=== PATIENT | female | born 1950 | race Caucasian/White ===

== ENCOUNTER → 2019-09-05 11:13 | Outpatient (BNVA) | payer MEDICARE, SELFPAY | PROVIDERS: Family Provider Nurse Practitioner Family; PCP Nurse Practitioner Family; Visit Provider Nurse Practitioner Family | DX: N39.0 Urinary tract infection, site not specified (principal) | CPT/HCPCS: 87086 ==

== ENCOUNTER → 2020-07-04 11:24 | Outpatient (BNVA) | payer MEDICARE, SELFPAY | PROVIDERS: Family Provider Nurse Practitioner Family; PCP Nurse Practitioner Family; Visit Provider Nurse Practitioner Family | DX: E11.9 Type 2 diabetes mellitus without complications (principal); E03.9 Hypothyroidism, unspecified; I10 Essential (primary) hypertension | CPT/HCPCS: 80053; 82043; 83036; 84443 ==

== ENCOUNTER → 2020-10-23 10:40 | Outpatient (BNVA) | payer MEDICARE, SELFPAY | PROVIDERS: Family Provider Nurse Practitioner Family; PCP Nurse Practitioner Family; Visit Provider Nurse Practitioner Family | DX: E11.9 Type 2 diabetes mellitus without complications (principal); E78.5 Hyperlipidemia, unspecified; E03.9 Hypothyroidism, unspecified | CPT/HCPCS: 80053; 80061; 83036; 84443 ==

== ENCOUNTER → 2020-12-11 13:28 | Outpatient (BNVA) | payer MEDICARE, SELFPAY | PROVIDERS: Family Provider Nurse Practitioner Family; PCP Nurse Practitioner Family; Visit Provider Nurse Practitioner Family | DX: E03.9 Hypothyroidism, unspecified (principal) | CPT/HCPCS: 84443 ==

== ENCOUNTER → 2021-04-30 15:07 | Outpatient (BNVA) | payer MEDICARE, SELFPAY | PROVIDERS: Family Provider Nurse Practitioner Family; PCP Nurse Practitioner Family; Visit Provider Nurse Practitioner Family | DX: E03.9 Hypothyroidism, unspecified (principal); I10 Essential (primary) hypertension | CPT/HCPCS: 80053; 84443 ==

== ENCOUNTER → 2021-11-19 10:48 | Outpatient (BNVA) | payer MEDICARE, SELFPAY | PROVIDERS: Family Provider Nurse Practitioner Family; PCP Nurse Practitioner Family; Visit Provider Nurse Practitioner Family | DX: R53.83 Other fatigue (principal); I10 Essential (primary) hypertension; E11.9 Type 2 diabetes mellitus without complications; E78.5 Hyperlipidemia, unspecified; R06.00 Dyspnea, unspecified; E03.9 Hypothyroidism, unspecified | CPT/HCPCS: 80053; 80061; 83036; 84443; 85025 ==

== ENCOUNTER → 2022-05-21 13:59 | Outpatient (BNVA) | payer MEDICARE, SELFPAY | PROVIDERS: Family Provider Nurse Practitioner Family; PCP Nurse Practitioner Family; Visit Provider Internal Medicine Cardiovascular Disease | DX: I48.11 Longstanding persistent atrial fibrillation (principal); Z79.01 Long term (current) use of anticoagulants; I10 Essential (primary) hypertension; Z86.73 Personal history of transient ischemic attack (TIA), and cerebral infarction without residual deficits | CPT/HCPCS: 93242; 99214 ==

== ENCOUNTER → 2022-06-16 13:30 | Outpatient (BNVA) | payer MEDICARE, SELFPAY | PROVIDERS: Family Provider Nurse Practitioner Family; PCP Nurse Practitioner Family; Visit Provider Nurse Practitioner Family | DX: E11.9 Type 2 diabetes mellitus without complications (principal); I10 Essential (primary) hypertension; E03.9 Hypothyroidism, unspecified | CPT/HCPCS: 80053; 83036; 84443 ==

== ENCOUNTER 2022-06-22 20:12 | Emergency (ER) | payer MEDICARE, SELFPAY ==
[2022-06-22 20:28] VITALS: BP 165/92; PULSE 108; RESP 26; TEMP 36.8; O2SAT 95; BMI 42.5
--- NOTE | 2022-06-22 20:30 | XRR_ITS ---
PROCEDURE INFORMATION: Exam: XR Chest Exam date and time: 06/22/2022 9:15 PM Age: 72 years old Clinical indication: Other: HTN; Additional info: High BP TECHNIQUE: Imaging protocol: Radiologic exam of the chest. Views: 1 view. COMPARISON: CR XR chest 1V [id number] 04/23/2019 4:53 PM FINDINGS: Lungs: There is no consolidation. There are calcified nodules in the right lower lung, stable since 04/23/2019. Pleural spaces: There is no pleural effusion or pneumothorax. Heart/Mediastinum: Unremarkable. No cardiomegaly. Bones/joints: Bones are unremarkable. XR/XR chest 1V portable [id number] IMPRESSION: No acute findings.
[2022-06-22 21:37] VITALS: BP 157/113; PULSE 108; RESP 20; O2SAT 96
[2022-06-22 21:50] LABS: Basophils % 0.3 %; Eosinophils # 0.2 10^3/uL (0.0-0.8); Eosinophils % 2.1 %; Hemoglobin 13.6 g/dL (11.5-15.3); Lymphocytes # 0.7 10^3/uL (0.8-4.8); Lymphocytes % 7.8 %; Mean Corpuscular HGB Conc 31.6 g/dL (30.0-36.0); Mean Corpuscular Hemoglobin 27.5 pg (28.0-34.0); Mean Platelet Volume 9.1 fL (7.4-10.4); Monocytes # 0.8 10^3/uL (0.2-0.9); Neutrophils # 7.75 10^3/uL (1.8-7.7); Neutrophils % 81.5 %; Nucleated Red Blood Cells % 0 %; Platelet Count 402 10^3/cmm (130-400); Red Blood Count 4.94 10^6/uL (4.1-5.3); Red Cell Distribution Width 15.6 % (12.1-15.1); White Blood Count 9.5 10^3/uL (4.0-10.0)
[2022-06-22 22:26] LABS: Troponin(5th) Baseline 28 ng/L (0-10)
[2022-06-22 22:32] VITALS: BP 183/105; PULSE 109; RESP 18; O2SAT 97
[2022-06-22 22:35] LABS: Alanine Aminotransferase 16 U/L (0-33); Albumin Level 3.5 g/dL (3.5-5.2); Alkaline Phosphatase 80 U/L (35-105); Anion Gap 17.9 (5-19); Aspartate Amino Transferase 13 U/L (0-32); Blood Urea Nitrogen 11 mg/dL (8-23); Calcium 9.2 mg/dL (8.5-10.5); Carbon Dioxide 24 mmol/L (22-29); Chloride 91 mmol/L (98-107); Globulin 3.5 g/dL (1.3-4.6); Glucose 202 mg/dL (65-115); NT Pro B Type Natriuretic Pept 741 pg/mL (0-125); Osmolality Calculated 271 mOsm/kg (285-295); Potassium 4.9 mmol/L (3.5-5.1); Sodium 128 mmol/L (136-145); Total Bilirubin 0.3 mg/dL (0.15-1.2)
--- NOTE | 2022-06-22 22:43 | ECG_ITS ---
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 Measurements Intervals [place] Rate: 98 P: [place]: QRS: -55 QRSD: 76 T: 0 QT: 177 QTc: 226 Interpretive Statements ATRIAL FLUTTER WITH ABERRANT CONDUCTION OR VENTRICULAR PREMATURE COMPLEXES LEFT AXIS DEVIATION [QRS AXIS < -30] LOW QRS VOLTAGE IN PRECORDIAL LEADS [QRS DEFLECTION < 1.0 mV IN CHEST LEADS] POSSIBLE RIGHT VENTRICULAR CONDUCTION DELAY [RSR (QR) IN V1/V2] ST DEPRESSION, CONSIDER SUBENDOCARDIAL INJURY [0.1+ mV ST DEPRESSION] Compared to ECG 04/28/2019 12:55:33 Ventricular premature complex(es) now present Aberrant conduction of supraventricular beat(s) now present Low QRS voltage now present ST (T wave) deviation now present Sinus rhythm no longer present Possible ischemia no longer present Electronically Signed On 06-23-2022 22:57:08 CDT by Emmy Morillo M.D. [id number]
[2022-06-22 22:48] LABS: Add Urine Microscopic? YES; Bilirubin Urine Neg (Negative); Blood Urine Neg (Negative); Glucose Urine UA Norm (Normal); Ketones Urine 1+ (Negative); Leukocyte Esterase Urine 1+ (Negative); Nitrate Urine Positive (Negative); Protein Urine Trace (Negative); Urine Appearance Hazy (CLEAR); Urine Color Yellow (Yellow); Urobilinogen Urine 1 mg/dL (Negative); pH Urine 5 (5-7)
[2022-06-22 22:51] LABS: Add Urine Culture? No; Bacteria Urine 2+ /hpf; Mucus Urine 1+ /hpf; RBC Urine 0-4 /hpf (0-2); WBC Urine 15-25 /hpf (0-5)
[2022-06-22 23:01] VITALS: BP 162/91; PULSE 104; RESP 18; O2SAT 96
--- NOTE | 2022-06-22 23:29 | ECG_ITS ---
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 Measurements Intervals [place] Rate: 92 P: [place]: QRS: -58 QRSD: 141 T: -57 QT: 412 QTc: 511 Interpretive Statements ATRIAL FLUTTER/TACHYCARDIA WITH ABERRANT CONDUCTION OR VENTRICULAR PREMATURE COMPLEXES RIGHT BUNDLE BRANCH BLOCK LEFT ANTERIOR FASCICULAR BLOCK MODERATE T-WAVE ABNORMALITY, CONSIDER ANTEROLATERAL ISCHEMIA MODERATE T-WAVE ABNORMALITY, CONSIDER INFERIOR ISCHEMIA Compared to ECG 06/22/2022 22:43:03 Right bundle-branch block now present Left anterior fascicular block now present T-wave abnormality now present Possible ischemia now present Left-axis deviation no longer present ST (T wave) deviation no longer present Electronically Signed On 06-23-2022 23:09:31 CDT by Emmy Morillo M.D. [id number]
[2022-06-22] MEDS: metoprolol tartrate 1 mg/1 mL SDV 5 mL 5 MG IVP (23:35)
[2022-06-22 23:39] VITALS: BP 160/89; PULSE 74; RESP 18; O2SAT 95
[2022-06-23] MEDS: cefTRIAXone 1,000 MG in sodium chloride 0.9% (plus) 50 ML 100 MG IV
[2022-06-23 00:10] LABS: Troponin 5 2HR 23.97 ng/L (0-10)
[2022-06-23 00:11] LABS: Troponin 5 2HR Delta -4.03 ABS# (0-10)
[2022-06-23 00:16] VITALS: BP 143/82; PULSE 72; RESP 18; O2SAT 96
[2022-06-23 00:49] VITALS: BP 136/87; PULSE 80; RESP 18; O2SAT 96
--- NOTE | 2022-06-24 10:19 | W.ED.GENADLT ---
HPI - General Adult General: Chief complaint: General Medical Stated complaint: high B/P Time Seen by Provider: 06/22/22 21:26 Source: patient and family Mode of arrival: wheelchair History of Present Illness: year old female brought in by her family due to concerns of rising heart rate and blood pressure. She has a history of atrial fibrillation/adrio flutter. And family has noticed her heart rate and blood pressure slowly rise over the past couple of weeks. The patient maintains she is not symptomatic from this. She is not a really short of breath, and is not having chest discomfort. No fever or diarrhea or other illness. Onset (ago): day(s) Radiation: non-radiation Severity: mild Quality: other Pain Consistency: other Relieving factors: other Exacerbating factors: other Associated symptoms: Reports weakness (generalized); Deny chest pain, confusion, cough, diaphoresis, decreased appetite, dyspnea, fevers/chills, headache(s), nausea, rash, seizures, syncope or vomiting Review of Systems Const: Denies: fever(s) or diaphoresis Eyes: Denies: change in vision Card: Denies: chest pain or syncope Resp: Denies: dyspnea GI: Denies: nausea or vomiting : Denies: difficulty voiding Skin/Breast: Denies: rash Neuro: Denies: headache(s) or confusion PFSH ED PFSH: Medical History Atrial fibrillation CVA (cerebral vascular accident) Diabetes type 2, controlled DVT (deep venous thrombosis) Dyslipidemia Hypertension Hypothyroidism Obesity Pulmonary embolism Surgical History History of tubal ligation Family History Mother Stroke Grandmother Stroke Other Hypertension Social History Smoking and tobacco status: never smoked Alcohol intake: never Lives independently: No Household members: spouse Marital status: Current occupational status: retired Current gender identity: Female Physical Exam Const: COMMON NORMALS: no acute distress GENERAL APPEARANCE: cooperative; not ill appearing and not frail appearing HENMT: COMMON NORMALS: normocephalic, atraumatic and Normal external nose present HEAD & SCALP: normocephalic and atraumatic FACE & SINUS: normal facial exam and face symmetric NOSE: Normal external nose present Eye: COMMON NORMALS: Equal, round and reactive pupils present and EOMs intact bilaterally PUPIL: Yes Equal, round and reactive pupils present Neck/C-Spine: GENERAL: Yes trachea midline Chest: CHEST: Yes Symmetrical chest wall rise Resp: COMMON NORMALS: normal respiratory effort, No retractions, No use of accessory muscles and clear to auscultation bilaterally AUSCULTATION: clear to auscultation bilaterally Cardio: COMMON NORMALS: regular rhythm RATE: tachycardic RHYTHM: regular rhythm GI: COMMON NORMALS: Normal to inspection, nondistended, normoactive bowel sounds present Extremity: COMMON NORMALS: no pedal edema Neuro: MARTIN COMA SCALE: document GCS findings Premont coma scale eye opening: Spontaneous Martin coma scale verbal response: Orientated Premont coma scale motor response: Obey commands Martin coma scale total score: 15 SENSORY EXAM: Yes extremities (intact) Psych: COMMON NORMALS: speech normal SPEECH: Yes normal speech Skin: COMMON NORMALS: no rashes or lesions noted GENERAL SKIN EXAM: no rashes or lesions noted Course Vital Signs: Vital signs: Vital Signs Temperature 98.3 F 06/22/22 20:28 Pulse Rate 80 06/23/22 00:49 Respiratory Rate 18 06/23/22 00:49 Blood Pressure 136/87 06/23/22 00:49 Pulse Oximetry 96 06/23/22 00:49 Oxygen Delivery Me thod 06/22/22 21:37 Oxygen Flow Rate 2 06/22/22 21:37 [facility] - General Adult Medical Decision Making The patient's heart rate and blood pressure are significantly improved after administration of intravenous metoprolol. Her notes that the master tax advisor has been titrating her dose of diltiazem, but she is also on carvedilol. We will increase her carvedilol dosage as the metoprolol seemed to really help both her blood pressure and heart rate here. Her laboratory is not remarkable, her chest X-ray is not remarkable, and the patient is asymptomatic. She does, however, have a urinary tract infection which will be treated as well. Family was counseled that this can drive up the heart rate as well. Lab Data : 06/22/22 21:37 06/22/22 21:37 Radiology Impressions Chest X-Ray 06/22/22 20:30 IMPRESSION: No acute findings. Laboratory Results WBC 9.5 10^3/uL (4.0-10.0) 06/22/22 21:37 RBC 4.94 10^6/uL (4.1-5.3) 06/22/22 21:37 Hgb 13.6 g/dL (11.5-15.3) 06/22/22 21:37 Hct 43.0 % (37.0-47.0) 06/22/22 21:37 MCV 87.0 fl (81-99) 06/22/22 21:37 MCH 27.5 pg (28.0-34.0) L 06/22/22 21:37 MCHC 31.6 g/dL (30.0-36.0) 06/22/22 21:37 RDW 15.6 % (12.1-15.1) H 06/22/22 21:37 Plt Count 402 10^3/cmm (130-400) H 06/22/22 21:37 MPV 9.1 fL (7.4-10.4) 06/22/22 21:37 Neut % (Auto) 81.5 % 06/22/22 21:37 Lymph % (Auto) 7.8 % 06/22/22 21:37 [place] % (Auto) 8.0 % 06/22/22 21:37 Eos % (Auto) 2.1 % 06/22/22 21:37 Baso % (Auto) 0.3 % 06/22/22 21:37 Neut # (Auto) 7.75 10^3/uL (1.8-7.7) H 06/22/22 21:37 Lymph # (Auto) 0.7 10^3/uL (0.8-4.8) L 06/22/22 21:37 [place] # (Auto) 0.8 10^3/uL (0.2-0.9) 06/22/22 21:37 Eos # (Auto) 0.2 10^3/uL (0.0-0.8) 06/22/22 21:37 Baso # (Auto) 0.0 10^3/uL (0.0-0.1) 06/22/22 21:37 Nucleated RBC % (auto) 0 % 06/22/22 21:37 Nucleated RBCs # 0.0 /100WBC 06/22/22 21:37 PT 24.80 SECONDS (12.1-14.9) H 06/22/22 21:37 INR 2.20 (0.8-1.2) H 06/22/22 21:37 Sodium 128 mmol/L (136-145) L 06/22/22 21:37 Potassium 4.9 mmol/L (3.5-5.1) 06/22/22 21:37 Chloride 91 mmol/L (98-107) L 06/22/22 21:37 Carbon Dioxide 24 mmol/L (22-29) 06/22/22 21:37 Anion Gap 17.9 (5-19) 06/22/22 21:37 BUN 11 mg/dL (8-23) 06/22/22 21:37 Creatinine 0.7 mg/dL (0.5-0.9) 06/22/22 21:37 GFR Calculation Not Reportable 06/22/22 21:37 Glucose 202 mg/dL (65-115) H 06/22/22 21:37 Calculated Osmolality 271 mOsm/kg (285-295) L 06/22/22 21:37 Calcium 9.2 mg/dL (8.5-10.5) 06/22/22 21:37 Total Bilirubin 0.3 mg/dL (0.15-1.2) 06/22/22 21:37 AST 13 U/L (0-32) 06/22/22 21:37 ALT 16 U/L (0-33) 06/22/22 21:37 Alkaline Phosphatase 80 U/L (35-105) 06/22/22 21:37 Troponin T Baseline 28 ng/L (0-10) H 06/22/22 21:37 Troponin T 120 Minute 23.97 ng/L (0-10) H 06/22/22 23:31 Delta Troponin T -4.03 ABS# (0-10) L 06/22/22 23:31 NT-Pro-B Natriuret Pep 741 pg/mL (0-125) H 06/22/22 21:37 Total Protein 7.0 g/dL (6.6-8.7) 06/22/22 21:37 Albumin 3.5 g/dL (3.5-5.2) 10/23/22 21:37 Globulin 3.5 g/dL (1.3-4.6) 06/22/22 21:37 Urine Color Yellow (Yellow) 06/22/22 22:28 Urine Appearance Hazy (CLEAR) A 06/22/22 22:28 Urine pH 5 (5-7) 06/22/22 22:28 Ur Specific Round O 1.020 (1.005-1.030) 06/22/22 22:28 Urine Protein Trace (Negative) 06/22/22 22:28 Urine Glucose (UA) Norm (Normal) 06/22/22 22:28 Urine Ketones 1+ (Negative) H 06/22/22 22:28 Urine Blood Neg (Negative) 06/22/22 22: Urine Nitrate Positive (Negative) H 06/22/22 22: Urine Bilirubin Neg (Negative) 06/22/22 22: Urine Urobilinogen 1 mg/dL (Negative) H 06/22/22 22:28 Ur Leukocyte Esterase 1+ (Negative) H 06/22/22 22:28 Urine RBC 0-4 /hpf (0-2) H 06/22/22 22:28 Urine WBC 15-25 /hpf (0-5) H 06/22/22 22:28 Ur Squamous Epith Cells 10-15 /hpf (0-5) H 06/22/22 22:28 Amorphous Sediment Not Reportable 06/22/22 22:28 Urine Bacteria 2+ /hpf (NONE) H 06/22/22 22:28 Urine Mucus 1+ /hpf 06/22/22 22:28 Discharge Plan Discharge Patient Disposition: Home Clinical Impression: Atrial flutter, Urinary tract infection Condition: Stable Prescriptions: New carvedilol 6.25 mg tablet 6.25 mg PO BID Qty: 60 0RF Rx Instructions: must administer with a meal/food cefdinir 300 mg capsule 300 mg PO BID Qty: 14 0RF Discontinued carvedilol 3.125 mg tablet See Rx Instructions .ROUTE .COMPLEX Qty: 180 1RF Dose Instruction: Take 1 tablet by mouth twice daily Rx Instructions: Take 1 tablet by mouth twice daily No Action aspirin 81 mg tablet,delayed release (DR/EC) 81 mg PO DAILY escitalopram oxalate 10 mg tablet See Rx Instructions .ROUTE .COMPLEX Qty: 90 1RF Dose Instruction: Take 1 tablet by mouth once daily Rx Instructions: Take 1 tablet by mouth once daily warfarin 2.5 mg tablet See Rx Instructions .ROUTE .COMPLEX Qty: 90 0RF Dose Instruction: Take 1 tablet by mouth once daily Rx Instructions: Take 1 tablet by mouth once daily spironolactone 25 mg tablet See Rx Instructions .ROUTE .COMPLEX Qty: 90 0RF Dose Instruction: Take 1 tablet by mouth once daily Rx Instructions: Take 1 tablet by mouth once daily doxepin 50 mg capsule See Rx Instructions .ROUTE .COMPLEX Qty: 90 0RF Dose Instruction: Take 1 capsule by mouth once daily Rx Instructions: Take 1 capsule by mouth once daily pantoprazole 40 mg tablet,delayed release (DR/EC) See Rx Instructions .ROUTE .COMPLEX Qty: 90 0RF Dose Instruction: Take 1 tablet by mouth once daily Rx Instructions: Take 1 tablet by mouth once daily atorvastatin 40 mg tablet See Rx Instructions .ROUTE .COMPLEX Qty: 90 0RF Dose Instruction: Take 1 tablet by mouth once daily Rx Instructions: Take 1 tablet by mouth once daily warfarin 5 mg tablet See Rx Instructions .ROUTE .COMPLEX Qty: 90 0RF Dose Instruction: TAKE 1 TABLET BY MOUTH ONCE DAILY DIRECTED Rx Instructions: TAKE 1 TABLET BY MOUTH ONCE DAILY DIRECTED metformin 500 mg tablet See Rx Instructions .ROUTE .COMPLEX Qty: 60 0RF Dose Instruction: Take 1 tablet by mouth twice daily Rx Instructions: Take 1 tablet by mouth twice daily levothyroxine 175 mcg capsule 175 mcg PO DAILY Qty: 90 0RF hydralazine 25 mg tablet 25 mg PO BID Qty: 180 3RF diltiazem HCl 120 mg capsule,extended release 24 hr 120 mg PO BID Qty: 180 3RF Discharge Orders: Discharge ED (Routine); Ordered 06/23/22 Ordered By: Martell Barillas Referrals: Patricia Coats FNP [Primary Care Provider] - 1-3 days Patient Instructions: Atrial Flutter (ED), Urinary Tract Infection in Women (ED) Activity Restrictions/Additional Instructions: Return for fever despite 2-3 doses of antibiotics, worsening mental status, worsening heart rate or blood pressure despite treatment. You may increase your dose of carvedilol from 1 tablet to 2 tablets of the medication you have twice daily until you run out. The new prescription is for double dose of your old medication. Antibiotics as directed. Follow-up with your doctor this week. Continue to watch your heart rate and blood pressure twice daily Coding Level of Care Code ED Administrative Assistant Office Manager for Hannah Lund
== END 2022-06-23 00:50 | disposition home or self-care (01) ==
PROVIDERS: Nurse Practitioner Family; Emergency Provider Emergency Medicine; PCP Nurse Practitioner Family
DX: I48.92 Unspecified atrial flutter (principal); N39.0 Urinary tract infection, site not specified; I48.91 Unspecified atrial fibrillation; Z79.01 Long term (current) use of anticoagulants
CPT/HCPCS: 71045; 80053; 81001; 83880; 84484; 85025; 85610; 93005; 96365; 96375; 99285; J0696; J3490

== ENCOUNTER → 2022-06-25 13:32 | Outpatient (BNVA) | payer MEDICARE, SELFPAY | PROVIDERS: PCP Nurse Practitioner Family; Visit Provider Nurse Practitioner Family | DX: I48.92 Unspecified atrial flutter (principal); Z79.01 Long term (current) use of anticoagulants; E78.5 Hyperlipidemia, unspecified | CPT/HCPCS: 99214 ==

== ENCOUNTER → 2022-06-30 11:51 | Outpatient (BNVA) | payer MEDICARE, SELFPAY | PROVIDERS: PCP Nurse Practitioner Family; Visit Provider Nurse Practitioner Family | DX: R04.0 Epistaxis (principal); I48.92 Unspecified atrial flutter; I50.30 Unspecified diastolic (congestive) heart failure | CPT/HCPCS: 80048; 83880; 85025; 85610 ==

== ENCOUNTER → 2022-07-02 13:39 | Outpatient (BNVA) | payer MEDICARE, SELFPAY | PROVIDERS: PCP Nurse Practitioner Family; Visit Provider Nurse Practitioner Family | DX: N39.0 Urinary tract infection, site not specified (principal) | CPT/HCPCS: 81000 ==

== ENCOUNTER → 2022-07-04 10:57 | Outpatient (BNVA) | payer MEDICARE, SELFPAY | PROVIDERS: PCP Nurse Practitioner Family; Visit Provider Nurse Practitioner Family | DX: N39.0 Urinary tract infection, site not specified (principal) | CPT/HCPCS: 87086 ==

== ENCOUNTER → 2022-07-29 11:40 | Outpatient (BNVA) | payer MEDICARE, SELFPAY | PROVIDERS: PCP Nurse Practitioner Family; Visit Provider Nurse Practitioner Family | DX: N39.0 Urinary tract infection, site not specified (principal) | CPT/HCPCS: 87077; 87086; 87184 ==

== ENCOUNTER → 2022-08-11 09:28 | Outpatient (BNVA) | payer MEDICARE, SELFPAY | PROVIDERS: PCP Nurse Practitioner Family; Visit Provider Nurse Practitioner Family | DX: N39.0 Urinary tract infection, site not specified (principal) | CPT/HCPCS: 81000 ==

== ENCOUNTER → 2023-01-12 10:15 | Outpatient (BNVA) | payer MEDICARE, SELFPAY | PROVIDERS: PCP Nurse Practitioner Family; Visit Provider Nurse Practitioner Family | DX: E11.9 Type 2 diabetes mellitus without complications (principal); E78.5 Hyperlipidemia, unspecified; I10 Essential (primary) hypertension; I48.11 Longstanding persistent atrial fibrillation | CPT/HCPCS: 80053; 80061; 83036; 84443; 85025 ==

== ENCOUNTER → 2023-06-01 13:10 | Outpatient (BNVA) | payer MEDICARE, SELFPAY | PROVIDERS: PCP Nurse Practitioner Family; Visit Provider Nurse Practitioner Family | DX: I10 Essential (primary) hypertension (principal); E11.9 Type 2 diabetes mellitus without complications; E03.9 Hypothyroidism, unspecified; H10.9 Unspecified conjunctivitis | CPT/HCPCS: 80053; 80061; 83036; 84443 ==

== ENCOUNTER → 2023-06-10 10:44 | Outpatient (BNVA) | payer MEDICARE, SELFPAY | PROVIDERS: PCP Nurse Practitioner Family; Visit Provider Nurse Practitioner Family | DX: E87.5 Hyperkalemia (principal) | CPT/HCPCS: 80053 ==

== ENCOUNTER → 2023-09-09 14:52 | Outpatient (BNVA) | payer MEDICARE, SELFPAY | PROVIDERS: PCP Nurse Practitioner Family; Visit Provider Nurse Practitioner Family | DX: I10 Essential (primary) hypertension (principal); E11.9 Type 2 diabetes mellitus without complications | CPT/HCPCS: 80053; 80061; 83036; 84443; 85025 ==

== ENCOUNTER 2023-11-04 12:48 | Emergency (ER) | payer MEDICARE, SELFPAY ==
--- NOTE | 2023-11-04 12:54 | XR_ITS ---
WS: [id number] Right hand, 3 views, 11/04/2023 Clinical Data: injury Comparison: None. Findings: No fractures or dislocations are seen. The soft tissues are unremarkable. There is osteoa rthritis of the PIP and DIP joints of the right second through fifth fingers. There is osteoarthritis of the right thumb IP joint and of the base of the right first metacarpal. 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
[2023-11-04 13:11] VITALS: BP 111/80; PULSE 98; RESP 16; TEMP 36.6; O2SAT 92
--- NOTE | 2023-11-04 14:18 | W.ED.EXTPRO ---
HPI - Extremity Problem General: Chief complaint: Extremity Problem,Nontraumatic Stated complaint: right middle finger is black Time Seen by Provider: 11/04/23 14:17 Source: patient Mode of arrival: ambulatory History of Present Illness: 73-year-old female presents to the emergency room with complaints of discoloration of her left third finger. Began about a week ago after she had used a lancet to prick the finger for an INR test. She is on Coumadin for A-fib DVT PE. No other injury. No fever sweats or chills patient is not diabetic no history of peripheral artery disease. She reports the digit itself is painless. MD Complaint: extremity pain Location: right and upper extremity (Third finger) Relieving factors: nothing Exacerbating factors: nothing Associated symptoms: Deny arthralgias, chest pain, fever(s), myalgias, rash or short of breath Review of Systems Const: Denies: fever(s) or chills Card: Denies: chest pain Resp: Denies: dyspnea GI: Denies: abdominal pain : Denies: dysuria, urinary frequency or urinary urgency Musc: Denies: neck pain or back pain Skin/Breast: Denies: rash PFSH ED PFSH: Medical History Diabetes type 2, controlled Hypertension Hypothyroidism Obesity Dyslipidemia CVA (cerebral vascular accident) Pulmonary embolism DVT (deep venous thrombosis) Atrial fibrillation Surgical History History of tubal ligation Family History Mother Stroke Grandmother Stroke Other Hypertension Social History Smoking and tobacco/nicotine status: never used tobacco/nicotine Alcohol intake: never Substance/Drug Use: never Lives independently: No Household members: spouse Marital status: Current occupational status: retired Do you think of yourself as: Straight/Heterosexual Current gender identity: Female Physical Exam Const: GENERAL APPEARANCE: cooperative and comfortable ORIENTATION/CONSCIOUSNESS: Yes awake, Yes oriented to person, Yes oriented to place and Yes oriented to time HENMT: COMMON NORMALS: normocephalic, atraumatic and hearing grossly normal bilaterally HEAD & SCALP: normocephalic and atraumatic Resp: COMMON NORMALS: normal respiratory effort, No retractions, No use of accessory muscles and clear to auscultation bilaterally AUSCULTATION: clear to auscultation bilaterally Cardio: COMMON NORMALS: regular rate, regular rhythm and No murmurs present (Cardio) RATE: regular rate RHYTHM: regular rhythm GI: COMMON NORMALS: Soft to palpation and No hepatosplenomegaly present AUSCULTATION: Yes normoactive bowel sounds PALPATION: Yes Soft to palpation, No Tenderness to palpation present (GI), No Guarding due to palpation present (GI) and Yes No hepatosplenomegaly present Extremity: OTHER: Right third digit shows well-demarcated ischemic tissue at the tip of the distal half of the distal phalanx. It is well-demarcated proximally is reddened and inflamed the dorsum of the finger there is some blistering. Neuro: SENSORIUM/ORIENTATION: Yes oriented to person, Yes oriented to place and Yes oriented to time Skin: COMMON NORMALS: no rashes or lesions noted GENERAL SKIN EXAM: no rashes or lesions noted Course Vital Signs: Vital signs: Vital Signs Temperature 97.8 F 11/04/23 13:11 Pulse Rate 70 11/04/23 16:34 Respiratory Rate 16 11/04/23 13:11 Blood Pressure 111/80 11/04/23 13:11 Pulse Oximetry 93 11/04/23 16:34 Oxygen Delivery Me thod Nasal Cannula 11/04/23 13:11 Oxygen Flow Rate 2 11/04/23 13:11 MDM - Extremity (Nontraumatic) Medical Decision Making Discussed with on-call Ortho this is not a case that they would handle here typically. They recommend that we refer her to hand surgery to help maintain the length of the digit is much as possible. Discussed with Dr. Aleena Gordillo she will see the patient tomorrow in the office she recommends dose of vancomycin today and discharged home on doxycycline. Will hold Coumadin until she sees the patient discussed with the patient gave him the phone number for Dr. Gordillo's office Medical Records I reviewed the patient's medical records. Lab Data I reviewed the patient's lab results. 11/04/23 13:54 11/04/23 13:54 Radiology Impressions Duplex Scan Upper Extremity Artery 11/04/23 14:42 IMPRESSION: No proximal arterial obstruction demonstrated. Arterial flow demonstrated in the 3rd finger to the level of the middle phalanx. Laboratory Results WBC 5.05 10^3/uL (3.29-11.43) 11/04/23 13:54 RBC 5.05 10^6/uL (3.85-5.65) 11/04/23 13:54 Hgb 14.90 g/dL (11.27-16.99) 11/04/23 13:54 Hct 45.1 % (36-47) 11/04/23 13:54 MCV 89.3 fl (85-98) 11/04/23 13:54 MCH 29.5 pg (27-33) 11/04/23 13:54 MCHC 33.0 g/dL (30-55) 11/04/23 13:54 RDW 21.4 % (12.1-15.1) H 11/04/23 13:54 Plt Count 351 10^3/cmm (157-399) 11/04/23 13:54 MPV 10.0 fL (7.4-10.4) 11/04/23 13:54 Neut % (Auto) 78.8 % 11/04/23 13:54 Lymph % (Auto) 9.1 % 11/04/23 13:54 [facility] % (Auto) 9.3 % 11/04/23 13:54 Eos % (Auto) 2.0 % 11/04/23 13:54 Baso % (Auto) 0.4 % 11/04/23 13:54 Neut # (Auto) 3.98 10^3/uL (1.8-7.7) 11/04/23 13:54 Lymph # (Auto) 0.5 10^3/uL (0.8-4.8) L 11/04/23 13:54 [facility] # (Auto) 0.5 10^3/uL (0.2-0.9) 11/04/23 13:54 Eos # (Auto) 0.1 10^3/uL (0.0-0.8) 11/04/23 13:54 Baso # (Auto) 0.0 10^3/uL (0.0-0.1) 11/04/23 13:54 Nucleated RBC % (auto) 0 % 11/04/23 13:54 Nucleated RBCs # 0.0 /100WBC 11/04/23 13:54 ESR 73 mm/hr (0-15) H 11/04/23 13:54 PT 26.70 SECONDS (12.1-14.9) H 11/04/23 13:54 INR 2.36 (0.8-1.2) H 11/04/23 13:54 Sodium 131 mmol/L (136-145) L 11/04/23 13:54 Potassium 5.6 mmol/L (3.5-5.1) H 11/04/23 13:54 Chloride 94 mmol/L (98-107) L 11/04/23 13:54 Carbon Dioxide 22 mmol/L (22-29) 11/04/23 13:54 Anion Gap 19.6 (5-19) H 11/04/23 13:54 BUN 16 mg/dL (8-23) 11/04/23 13:54 Creatinine 0.7 mg/dL (0.5-0.9) 11/04/23 13:54 GFR Calculation Not Reportable 11/04/23 13:54 Glucose 131 mg/dL (65-115) H 11/04/23 13:54 Calculated Osmolality 275 mOsm/kg (285-295) L 11/04/23 13:54 Calcium 8.6 mg/dL (8.5-10.5) 11/04/23 13:54 C-Reactive Protein 38.8 mg/L (0.0-4.9) H 11/04/23 13:54 All radiology interpretation(s) finalized by discharge Discharge Plan Discharge Patient Disposition: Home Clinical Impression: Ischemia of digits of hand, Cellulitis of finger of right hand Condition: Stable Prescriptions: New doxycycline hyclate 100 mg capsule 100 mg PO BID 10 Days Qty: 20 0RF No Action aspirin 81 mg tablet,delayed release (DR/EC) 81 mg PO QAM hydralazine 25 mg tablet 25 mg PO BID Qty: 180 3RF acyclovir 800 mg tablet 800 mg PO QAM erythromycin 5 mg/gram (0.5 %) ointment 0.25 inch ophthalmic (eye) BID atorvastatin 40 mg tablet 40 mg PO QAM metformin 500 mg tablet 500 mg PO BID doxepin 50 mg capsule 50 mg PO QPM levothyroxine 175 mcg tablet 175 mcg PO QAM carvedilol 6.25 mg tablet 6.25 mg PO BID spironolactone 25 mg tablet 25 mg PO QAM warfarin 4 mg tablet 4 mg PO QPM diltiazem HCl 120 mg capsule,extended release 24 hr 120 mg PO BID pantoprazole 40 mg tablet,delayed release (DR/EC) 40 mg PO QAM escitalopram oxalate 10 mg tablet 10 mg PO QAM Discharge Orders: Discharge ED (Routine); Ordered 11/04/23 Ordered By: Luis Norris Referrals: Patricia Coats FNP [Primary Care Provider] - Discharge Diet: Usual diet Discharge Activity: Limit activity as instructed Patient Instructions: Opioid Safety, Pain Management Activity Restrictions/Additional Instructions: Thank you for choosing [facility] for your healthcare needs today. Please realize this is an emergency room and that we are providing you with a medical screening exam and this may not be complete and all inclusive of all the testing and or work up that you may need to determine your ailment or severity of your illness. It is very important that you follow up as instructed or that you return to the Emergency Department should you have concerns or if your condition changes or worsens in any way. You were seen today for ischemia (lack of blood flow) of the fingertip. You were given a dose of antibiotics here and discharged home with oral antibiotics. You should contact Dr. Aleena Gordillo's office at [phone]. They will see you tomorrow to discuss definitive treatment of the finger. Recommend that you do not take any Coumadin until you see Dr. Gordillo tomorrow. Coding Level of Care Code ED Rubber Goods Inspector Tester for Hannah Lund
[2023-11-04 14:20] LABS: Basophils % 0.4 %; Eosinophils # 0.1 10^3/uL (0.0-0.8); Hematocrit 45.1 % (36-47); Lymphocytes # 0.5 10^3/uL (0.8-4.8); Lymphocytes % 9.1 %; Mean Corpuscular Hemoglobin 29.5 pg (27-33); Mean Corpuscular Volume 89.3 fl (85-98); Monocytes # 0.5 10^3/uL (0.2-0.9); Monocytes % 9.3 %; Neutrophils # 3.98 10^3/uL (1.8-7.7); Neutrophils % 78.8 %; Nucleated Red Blood Cells % 0 %; Platelet Count 351 10^3/cmm (157-399); Red Blood Count 5.05 10^6/uL (3.85-5.65); Red Cell Distribution Width 21.4 % (12.1-15.1); White Blood Count 5.05 10^3/uL (3.29-11.43)
[2023-11-04 14:42] LABS: Blood Urea Nitrogen 16 mg/dL (8-23); Carbon Dioxide 22 mmol/L (22-29); Creatinine Clr Calc Pharmacy 70.8815
--- NOTE | 2023-11-04 14:42 | USR_ITS ---
PROCEDURE INFORMATION: Exam: US Duplex Right Upper Extremity Arteries Exam date and time: 11/04/2023 2:55 PM Age: 73 years old Clinical indication: Other: 3rd digital tip is black; Additional info: Embolic thrombosed R 3rd finger TECHNIQUE: Imaging protocol: Right Real-time ultrasound scan of the arteries of the right upper extremity with 2-D scott scale, color Doppler flow and spectral waveform analysis. COMPARISON: CT angio chest PE protcl [id number] 07/19/2018 4:35 PM FINDINGS: Right subclavian artery: No occlusion or significant stenosis. Normal waveform. Right axillary artery: No occlusion or significant stenosis. Normal waveform. Right brachial artery: No occlusion or significant stenosis. Normal waveform. Right radial artery: No occlusion or significant stenosis. Normal waveform. Right ulnar artery: No occlusion or significant stenosis. Normal waveform. Other findings: Arterial flow is demonstrated in the symptomatic 3rd finger to the level of the middle phalanx. US/[place] [id number] IMPRESSION: No proximal arterial obstruction demonstrated. Arterial flow demonstrated in the 3rd finger to the level of the middle phalanx.
[2023-11-04 14:56] LABS: Erythrocyte Sedimentation Rate 73 mm/hr (0-15)
[2023-11-04 15:02] LABS: Anion Gap 19.6 (5-19); C Reactive Protein 38.8 mg/L (0.0-4.9); Calcium 8.6 mg/dL (8.5-10.5); Chloride 94 mmol/L (98-107); Glucose 131 mg/dL (65-115); Osmolality Calculated 275 mOsm/kg (285-295); Potassium 5.6 mmol/L (3.5-5.1); Sodium 131 mmol/L (136-145)
[2023-11-04 15:08] LABS: INR 2.36 (0.8-1.2)
[2023-11-04] MEDS: vancomycin 1,000 MG in sodium chloride 0.9% 250 ML 250 MG IV (16:20)
[2023-11-04 16:34] VITALS: PULSE 70; O2SAT 93
--- NOTE | 2023-11-04 17:34 | PC.NURSE ---
Discharge delay: d/c is delayed d/t vancomycin infusion being stopped and not being completed
[2023-11-04 18:53] VITALS: PULSE 70; O2SAT 93
== END 2023-11-04 18:56 | disposition home or self-care (01) ==
PROVIDERS: Emergency Medicine; Emergency Provider Family Medicine; PCP Nurse Practitioner Family
DX: I99.8 Other disorder of circulatory system (principal); L03.011 Cellulitis of right finger; Z79.82 Long term (current) use of aspirin; Z79.84 Long term (current) use of oral hypoglycemic drugs; Z79.01 Long term (current) use of anticoagulants; E11.51 Type 2 diabetes mellitus with diabetic peripheral angiopathy without gangrene; I10 Essential (primary) hypertension; E78.5 Hyperlipidemia, unspecified; Z86.73 Personal history of transient ischemic attack (TIA), and cerebral infarction without residual deficits
CPT/HCPCS: 36415; 73130; 80048; 85025; 85610; 85651; 86140; 87040; 93931; 96365; 99284; J3370; J7050

== ENCOUNTER → 2023-11-18 15:30 | Outpatient (BNVA) | payer MEDICARE, SELFPAY | PROVIDERS: PCP Nurse Practitioner Family; Visit Provider Nurse Practitioner Family | DX: I48.91 Unspecified atrial fibrillation (principal) | CPT/HCPCS: 85610 ==

== ENCOUNTER → 2023-11-19 14:22 | Outpatient (BNVA) | payer MEDICARE, SELFPAY | PROVIDERS: PCP Nurse Practitioner Family; Visit Provider Internal Medicine Cardiovascular Disease | DX: I48.11 Longstanding persistent atrial fibrillation (principal); Z79.01 Long term (current) use of anticoagulants; E78.5 Hyperlipidemia, unspecified; I10 Essential (primary) hypertension; I27.20 Pulmonary hypertension, unspecified; E11.9 Type 2 diabetes mellitus without complications; Z79.84 Long term (current) use of oral hypoglycemic drugs; E03.9 Hypothyroidism, unspecified; Z89.029 Acquired absence of unspecified finger(s) | CPT/HCPCS: 99214 ==

== ENCOUNTER → 2023-11-25 11:48 | Outpatient (BNVA) | payer MEDICARE, SELFPAY | PROVIDERS: PCP Nurse Practitioner Family; Visit Provider Nurse Practitioner Family | DX: D69.9 Hemorrhagic condition, unspecified (principal); I26.99 Other pulmonary embolism without acute cor pulmonale; I82.409 Acute embolism and thrombosis of unspecified deep veins of unspecified lower extremity; Z79.01 Long term (current) use of anticoagulants | CPT/HCPCS: 85730 ==

== ENCOUNTER → 2023-11-27 10:20 | Outpatient (BNVA) | payer MEDICARE, SELFPAY | PROVIDERS: PCP Nurse Practitioner Family; Visit Provider Nurse Practitioner Family | DX: I82.409 Acute embolism and thrombosis of unspecified deep veins of unspecified lower extremity (principal) | CPT/HCPCS: 85610 ==

== ENCOUNTER 2024-03-24 19:28 | Inpatient (IN) | payer MEDICARE, SELFPAY ==
--- NOTE | 2024-03-24 19:29 | XRR_ITS ---
PROCEDURE INFORMATION: Exam: XR Chest Exam date and time: 03/24/2024 7:41 PM Age: 74 years old Clinical indication: Shortness of breath; Additional info: Weakness TECHNIQUE: Imaging protocol: Radiologic exam of the chest. Views: 1 view. COMPARISON: CR XR chest 1V portable [id number] 06/22/2022 9:15 PM FINDINGS: Lungs: The lungs are hypoexpanded. Mild left basilar atelectasis. Pleural spaces: Unremarkable. No pleural effusion. No pneumothorax. Heart/Mediastinum: Mild cardiomegaly. Bones/joints: Unremarkable. XR/XR chest 1V portable [id number] IMPRESSION: Mild left basilar atelectasis.
[2024-03-24 19:30] VITALS: BP 101/77; PULSE 98; RESP 20; TEMP 36.4; O2SAT 86
--- NOTE | 2024-03-24 19:36 | ECG_ITS ---
[facility] Test Date: 2024-03-24 Pat Name: Geetha Hess Department: Room: Gender: Female Program Management Intern: : 1950 Requested By: Jason Simmons Order Number: [id number] Tarun MD: Tatyana Rojas M.D. Measurements Intervals [place] Rate: 91 P: 0 VT: 0 QRS: -89 QRSD: 147 T: 131 QT: 386 QTc: 475 Interpretive Statements ATRIAL FLUTTER/TACHYCARDIA LEFT AXIS DEVIATION [QRS AXIS < -30] RIGHT BUNDLE BRANCH BLOCK [120+ ms QRS DURATION, UPRIGHT V1, 40+ ms S IN I/aVL/V4/V5/V6] POSSIBLE ANTEROSEPTAL MYOCARDIAL INFARCTION , OF INDETERMINATE AGE [30 ms Q WAVE IN V1-V4] Compared to ECG 06/22/2022 23:29:21 Left-axis deviation now present Myocardial infarct finding now present Aberrant conduction of supraventricular beat(s) no longer present Left anterior fascicular block no longer present T-wave abnormality no longer present Possible ischemia no longer present Electronically Signed On 03-25-2024 1:00:59 CDT by Tatyana Rojas M.D. [id number]
--- NOTE | 2024-03-24 19:36 | CTR_ITS ---
PROCEDURE INFORMATION: Exam: CT Head Without Contrast Exam date and time: 03/24/2024 7:48 PM Age: 74 years old Clinical indication: Patient HX: EMS arrival for general weakness. History of prior CVA. ; Additional info: Weakiness Other procedure information: e TECHNIQUE: Imaging protocol: Computed tomography of the head without contrast. Radiation optimization: All CT scans at this facility use at least one of these dose optimization techniques: automated exposure control; mA and/or kV adjustment per patient size (includes targeted exams where dose is matched to clinical indication); or iterative reconstruction. COMPARISON: No relevant prior studies available. RADIATION DOSE METRICS: Total DLP (mGy-cm): 1148.68 FINDINGS: Brain: Encephalomalacia within the left parieto-occipital lobe. No acute intracranial hemorrhage or territorial infarction.There is mild diffuse heterogeneity of the white matter attenuation, consistent with chronic white matter ischemic changes. Cerebral ventricles: Ex vacuo dilatation of the posterior horn of the left lateral ventricle. No hydrocephalus. Paranasal sinuses: Complete opacification of the paranasal sinuses, concerning for sinusitis. Mastoid air cells: Visualized mastoid air cells are well aerated. Bones: Unremarkable. No acute fracture. Soft tissues: Unremarkable. CT/CT head wo con* [id number] IMPRESSION: No acute intracranial findings. Chronic infarct within the left parieto-occipital lobe. Complete opacification of the paranasal sinuses, concerning for sinusitis.
--- NOTE | 2024-03-24 19:38 | ED_ITS ---
HPI - Weakness 2 General: Chief complaint: Weakness Stated complaint: WEAKNESS Time Seen by Provider: 03/24/24 19:30 Source: patient and EMS Mode of arrival: EMS Limitations: no limitations History of Present Illness: 74-year-old female states she has been f eeling extremely weak over the last 2 days with worsening today. She states she is feels very fatigued having hard time walking due to her general weakness she denies any focal deficits no slurred speech she had some slight confusion she denies any headache. She is able to tell me where she is from and her name but she gets confused on the date. Denies any fevers. is here he states that patient's actually had chronic weakness and been weak for 5 years with really no change today states he called EMS because she had a nosebleed earlier she does wear oxygen at home she has no nosebleed currently Associated symptoms: Denies chest pain, chills, fever(s), headache(s), nausea or vomiting Review of Systems 2 Const: Reports: fatigue and malaise; Denies: fever(s), chills, body aches or change in appetite Eyes: Denies: blurry vision or eye discomfort ENMT: Denies: throat pain or dental pain Card: Denies: chest pain Resp: Denies: dyspnea GI: Denies: abdominal pain, nausea, vomiting or diarrhea Musc: Denies: neck pain or back pain Skin/Breast: Denies: rash Neuro: Denies: headache(s) PFSH ED 2 PFSH: Medical History Diabetes type 2, controlled Hypertension Hypothyroidism Obesity Dyslipidemia CVA (cerebral vascular accident) Pulmonary embolism DVT (deep venous thrombosis) Atrial fibrillation Surgical History History of surgical amputation of finger History of tubal ligation Family History Mother Stroke Grandmother Stroke Other Hypertension Social History Smoking and tobacco/nicotine status: never used tobacco/nicotine Alcohol intake: never Substance/Drug Use: never Lives independently: No Household members: spouse Marital status: Current occupational status: retired Do you think of yourself as: Straight/Heterosexual Current gender identity: Female Physical Exam 2 Const: COMMON NORMALS: patient oriented x3 HENMT: COMMON NORMALS: normocephalic and atraumatic HEAD & SCALP: n ormocephalic and atraumatic Eye: COMMON NORMALS: Equal, round and reactive pupils present and EOMs intact bilaterally PUPIL: Yes Equal, round and reactive pupils present Neck/C-Spine: COMMON NORMALS: full ROM and supple Chest: COMMONS NORMALS: normal inspection of the chest and normal palpation of entire chest wall Resp: COMMON NORMALS: normal respiratory effort, No retractions, No use of accessory muscles and clear to auscultation bilaterally AUSCULTATION: clear to auscultation bilaterally Cardio: COMMON NORMALS: regular rate, regular rhythm and No murmurs present (Cardio) RATE: regular rate RHYTHM: regular rhythm GI: COMMON NORMALS: Normal to inspection, nondistended, normoactive bowel sounds present, Soft to palpation, non-tender and no masses PALPATION: Yes Soft to palpation Extremity: COMMON NORMALS: normal to inspection and full ROM Neuro: COMMON NORMALS: patient oriented x3, moves all extremities and no focal motor deficits CRANIAL NERVES: Yes CN normal except as noted SPEECH: s peech normal MOTOR EXAM: 5/5 motor strength present throughout Psych: COMMON NORMALS: mental status grossly normal, Normal thought process present and cooperative THOUGHT PROCESS: Normal thought process present Skin: COMMON NORMALS: no rashes or lesions noted and no wounds GENERAL SKIN EXAM: no rashes or lesions noted Procedures Epistaxis Control Time Out Performed: Yes Nostril: left Clots Removed by: blowing nose Device Inserted: other (rhino rocket) Patient Tolerated Procedure: well Course 2 Vital Signs: Vital signs: Vital Signs Temperature 97.5 F L 03/24/24 19:30 Pulse Rate 112 H 03/24/24 21:00 Respiratory Rate 18 03/24/24 19:42 Blood Pressure 129/99 03/24/24 21:00 Pulse Oximetry 92 03/24/24 21:00 Oxygen Delivery Me thod Room Air 03/24/24 21:00 MDM - Weakness Medical Decision Making Patient presents with denies weakness she also has a nosebleed to the left nare her nose did start bleeding here placed a Rhino Rocket. She does have an elevated troponin from her baseline patient denies any chest pain I spoke to the hospitalist will admit to trend her troponins. Medical Records I reviewed the patient's medical records. Lab Data I reviewed the patient's lab results. 03/24/24 19:38 03/24/24 19:38 Radiology Impressions Chest X-Ray 03/24/24 19:29 IMPRESSION: Mild left basilar atelectasis. Head CT 03/24/24 19:36 IMPRESSION: No acute intracranial findings. Chronic infarct within the left parieto-occipital lobe. Complete opacification of the paranasal sinuses, concerning for sinusitis. Laboratory Results WBC 4.48 10^3/uL (3.29-11.43) 03/24/24 19:38 RBC 3.93 10^6/uL (3.85-5.65) 03/24/24 19:38 Hgb 13.20 g/dL (11.27-16.99) 03/24/24 19:38 Hct 38.7 % (36-47) 03/24/24 19:38 MCV 98.5 fl (85-98) H 03/24/24 19:38 MCH 33.6 pg (27-33) H 03/24/24 19:38 MCHC 34.1 g/dL (30-55) 03/24/24 19:38 RDW 15.6 % (12.1-15.1) H 03/24/24 19:38 Plt Count 228 10^3/cmm (157-399) 03/24/24 19:38 MPV 10.7 fL (7.4-10.4) H 03/24/24 19:38 Neut % (Auto) 65.5 % 03/24/24 19:38 Lymph % (Auto) 13.8 % 03/24/24 19:38 [place] % (Auto) 18.3 % 03/24/24 19:38 Eos % (Auto) 2.0 % 03/24/24 19:38 Baso % (Auto) 0.2 % 03/24/24 19:38 Neut # (Auto) 2.93 10^3/uL (1.8-7.7) 03/24/24 19:38 Lymph # (Auto) 0.6 10^3/uL (0.8-4.8) L 03/24/24 19:38 [place] # (Auto) 0.8 10^3/uL (0.2-0.9) 03/24/24 19:38 Eos # (Auto) 0.1 10^3/uL (0.0-0.8) 03/24/24 19:38 Baso # (Auto) 0.0 10^3/uL (0.0-0.1) 03/24/24 19:38 Nucleated RBC % (auto) 0.4 % 03/24/24 19:38 Nucleated RBCs # 0.0 /100WBC 03/24/24 19:38 PT 18.50 SECONDS (12.1-14.9) H 03/24/24 20:15 INR 1.49 (0.8-1.2) H 03/24/24 20:15 D-Dimer >= 20.00 ug/mLFEU (0-0.59) H 03/24/24 20:15 Sodium 136 mmol/L (136-145) 03/24/24 19:38 Potassium 5.0 mmol/L (3.5-5.1) 03/24/24 19:38 Chloride 100 mmol/L (98-107) 03/24/24 19:38 Carbon Dioxide 23 mmol/L (22-29) 03/24/24 19:38 Anion Gap 18.0 (5-19) 03/24/24 19:38 BUN 22 mg/dL (8-23) 03/24/24 19:38 Creatinine 0.8 mg/dL (0.5-0.9) 03/24/24 19:38 GFR Calculation Not Reportable 03/24/24 19:38 Glucose 93 mg/dL (65-115) 03/24/24 19:38 Calculated Osmolality 285 mOsm/kg (285-295) 03/24/24 19:38 Calcium 7.7 mg/dL (8.5-10.5) L 03/24/24 19:38 Magnesium 1.6 mg/dL (1.7-2.3) L 03/24/24 19:38 Total Bilirubin 0.5 mg/dL (0.15-1.2) 03/24/24 19:38 AST 34 U/L (0-32) H 03/24/24 19:38 ALT 26 U/L (0-33) 03/24/24 19:38 Alkaline Phosphatase 64 U/L (35-105) 03/24/24 19:38 Troponin T Baseline 215 ng/L (0-10) H* 03/24/24 19:45 Total Protein 6.5 g/dL (6.6-8.7) L 03/24/24 19:38 Albumin 2.1 g/dL (3.5-5.2) L 03/24/24 19:38 Globulin 4.4 g/dL (1.3-4.6) 03/24/24 19:38 Lipase 20 U/L (13-60) 03/24/24 19:38 TSH 0.04 uIU/mL (0.27-4.20) L 03/24/24 19:38 Urine Color Yellow (Yellow) 03/24/24 20: Urine Appearance Cloudy (CLEAR) A 03/24/24 20: Urine pH 5 (5-7) 03/24/24 20:26 Ur Specific Luke 1.025 (1.005-1.030) 03/24/24 20:26 Urine Protein Trace (Negative) 03/24/24 20: Urine Glucose (UA) Norm (Normal) 03/24/24 20: Urine Ketones 1+ (Negative) H 03/24/24 20: Urine Blood Trace (Negative) H 03/24/24 20: Urine Nitrate Positive (Negative) A 03/24/24 20: Urine Bilirubin Neg (Negative) 03/24/24 20:26 Urine Urobilinogen 1 mg/dL (Negative) H 03/24/24 20:26 Ur Leukocyte Esterase Trace (Negative) H 03/24/24 20:26 Urine RBC 0-4 /hpf (0-2) H 03/24/24 20:26 Urine WBC 5-10 /hpf (0-5) H 03/24/24 20:26 Ur Squamous Epith Cells None /hpf (0-5) 03/24/24 20:26 Ur Transition Epith Cell 0-4 /hpf 03/24/24 20:26 Amorphous Sediment Not Reportable 03/24/24 20:26 Urine Bacteria 4+ /hpf (NONE) H 03/24/24 20:26 Hyaline Casts 0-4 /lpf H 03/24/24 20:26 Urine Mucus 1+ /hpf 03/24/24 20:26 All radiology interpretation(s) finalized by discharge EKG Data EKG 1: I personally reviewed and interpreted this EKG as follows: EKG interpretation date: 03/24/24 EKG interpretation time: 19:59 Interpretation: atrial flutter hr [address] elevation qrs 147 qtc 434 Discharge Plan Discharge Patient Disposition: Admitted As Inpatient Admit Provider: Pollo Richardson Clinical Impression: Generalized weakness, Epistaxis, Elevated troponin Condition: Stable Coding Level of 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
[2024-03-24 19:42] VITALS: BP 101/87; PULSE 87; RESP 18; O2SAT 95
[2024-03-24 19:48] LABS: Basophils % 0.2 %; Eosinophils # 0.1 10^3/uL (0.0-0.8); Hematocrit 38.7 % (36-47); Lymphocytes # 0.6 10^3/uL (0.8-4.8); Lymphocytes % 13.8 %; Mean Corpuscular HGB Conc 34.1 g/dL (30-55); Mean Corpuscular Hemoglobin 33.6 pg (27-33); Mean Corpuscular Volume 98.5 fl (85-98); Mean Platelet Volume 10.7 fL (7.4-10.4); Monocytes # 0.8 10^3/uL (0.2-0.9); Monocytes % 18.3 %; Neutrophils # 2.93 10^3/uL (1.8-7.7); Neutrophils % 65.5 %; Nucleated Red Blood Cells % 0.4 %; Platelet Count 228 10^3/cmm (157-399); Red Blood Count 3.93 10^6/uL (3.85-5.65); Red Cell Distribution Width 15.6 % (12.1-15.1); White Blood Count 4.48 10^3/uL (3.29-11.43)
[2024-03-24] MEDS: sodium chloride 0.9% 1,000 ML 999 ML IV (19:57)
[2024-03-24 20:17] LABS: Troponin(5th) Baseline 215 ng/L (0-10)
[2024-03-24 20:20] LABS: Alanine Aminotransferase 26 U/L (0-33); Albumin Level 2.1 g/dL (3.5-5.2); Alkaline Phosphatase 64 U/L (35-105); Blood Urea Nitrogen 22 mg/dL (8-23); Calcium 7.7 mg/dL (8.5-10.5); Carbon Dioxide 23 mmol/L (22-29); Chloride 100 mmol/L (98-107); Globulin 4.4 g/dL (1.3-4.6); Glucose 93 mg/dL (65-115); Lipase 20 U/L (13-60); Magnesium 1.6 mg/dL (1.7-2.3); Osmolality Calculated 285 mOsm/kg (285-295); Sodium 136 mmol/L (136-145); Thyroid Stimulating Hormone 0.04 uIU/mL (0.27-4.20); Total Bilirubin 0.5 mg/dL (0.15-1.2); Total Protein 6.5 g/dL (6.6-8.7)
[2024-03-24 20:21] LABS: Aspartate Amino Transferase 34 U/L (0-32)
--- NOTE | 2024-03-24 20:40 | PM.HP ---
Providers/Chief Complaint Primary Care Provider: FRANKIE ePterson Chief Complaint: WEAKNESS History of Present Illness Geetha Hess is a 74 year old female with multiple comorbid conditions, presented to the hospital for bleeding through her nose. Patient has history of epistaxis last time she had to be transferred to [facility] for profuse posterior epistaxis bleeding at that time she was also on Eliquis, her last dose of Eliquis was around 7 AM 03/24, patient is denying chest pain shortness of breath nausea vomiting or fever. She is incontinent, family thinks she might be having another UTI, she has history of recurrent UTIs, as per the patient probably has dementia she does not do her finances, she is wheelchair-bound since her previous stroke, she has very poor strength, she is leading a very poor quality of life, her p.o. intake has worsened, she gets confused easily. In the ER she was diagnosed with non-STEMI with significantly high troponin she is not complaining of active chest pain, she is in A-fib RVR heart rate 116 Discussed goals of care with the and the daughter, for now patient is full code I have encouraged the family to rediscuss goals of care considering her poor quality of life At this point we are not able to anticoagulate her because of epistaxis, she has a Rhino Rocket, There is no active bleeding Rhino Rocket has stopped left nostril bleeding Hemoglobin is 13 Family is not interested in transfer for now I did tell them that we do not have ENT backup in case she starts bleeding profusely, daughter is not interested in transfer at this point Review of Systems General: Reports: ROS unobtainable due to mental status Medications/Allergies Home Medications Medication Instructions Recorded Confirmed Last Taken Type aspirin 81 mg tablet,delayed 81 mg PO QAM 05/21/22 11/25/23 11/04/23 History release hydralazine 25 mg tablet 25 mg PO BID #180 tabs 09/09/23 11/25/23 11/04/23 Rx acyclovir 800 mg tablet 800 mg PO QAM 11/04/23 11/25/23 Unknown History erythromycin 5 mg/gram (0.5 %) eye 0.25 inch ophthalmic (eye) BID 11/04/23 11/25/23 11/03/23 History ointment (3.5 gram tube) apixaban 5 mg tablet (Eliquis) 5 mg PO BID #180 tabs 11/27/23 11/27/23 Unknown Rx doxepin 50 mg capsule See Rx Instructions .Route 01/21/24 Unknown Rx .COMPLEX #90 caps carvedilol 6.25 mg tablet See Rx Instructions .Route 02/08/24 Unknown Rx .COMPLEX #180 tabs atorvastatin 40 mg tablet See Rx Instructions .Route 02/15/24 Unknown Rx .COMPLEX #90 tabs pantoprazole 40 mg tablet,delayed See Rx Instructions .Route 02/15/24 Unknown Rx release .COMPLEX #90 tabs levothyroxine 175 mcg tablet See Rx Instructions .Route 02/29/24 Unknown Rx .COMPLEX #90 tabs metformin 500 mg tablet See Rx Instructions .Route 03/08/24 Unknown Rx .COMPLEX #60 tabs diltiazem HCl 120 mg capsule,24 See Rx Instructions .Route 03/09/24 Unknown Rx hr,extended release .COMPLEX #180 caps spironolactone 25 mg tablet See Rx Instructions .Route 03/10/24 Unknown Rx .COMPLEX #90 tabs escitalopram oxalate 10 mg tablet See Rx Instructions .Route 03/14/24 Unknown Rx .COMPLEX #90 tabs Allergies Allergy/AdvReac Type Severity Reaction Status Date / Time ciprofloxacin [From Cipro] Allergy Unknown Verified 11/25/23 11:05 PFSH Acute PFSH: Medical History Diabetes type 2, controlled Hypertension Hypothyroidism Obesity Dyslipidemia CVA (cerebral vascular accident) Pulmonary embolism DVT (deep venous thrombosis) Atrial fibrillation Surgical History History of surgical amputation of finger History of tubal ligation Family History Mother Stroke Grandmother Stroke Other Hypertension Social History Smoking and tobacco/nicotine status: never used tobacco/nicotine Alcohol intake: never Substance/Drug Use: never Lives independently: No Household members: spouse Marital status: Current occupational status: retired Do you think of yourself as: Straight/Heterosexual Current gender identity: Female Vitals/I&O/Wt Last Vital Signs Temp 97.5 F L 03/24/24 19:30 Pulse 87 03/24/24 19:42 Resp 18 03/24/24 19:42 BP 101/87 03/24/24 19:42 Pulse Ox 95 03/24/24 19:42 O2 Del Method Room Air 03/24/24 19:42 Physical Exam Narrative: Patient is verbally redirectable Able to move her extremities She looks confused Keep moving her head right to left Able to move her lower extremities on command As per the family she is very weak and lethargic which has not changed from baseline Looks slightly dehydrated Smell of urine in the sheets Abdomen non tender but distended I do not see any focal deficits Patient has poor attention span Data 03/24/24 19:38 03/24/24 19:38 A&P Assessment and plan (1) Pulmonary HTN: (2) Elevated troponin: (3) Atrial fibrillation: Qualifiers: Atrial fibrillation type: longstanding persistent Qualified Code(s): I48.11 - Longstanding persistent atrial fibrillation (4) On anticoagulant therapy: (5) Pulmonary embolism: (6) Diabetes type 2, controlled: Qualifiers: Diabetes mellitus long term care pharmacist insulin use: without intermediate use Diabetes mellitus complication status: without complication Qualified Code(s): E11.9 - Type 2 diabetes mellitus without complications (7) Epistaxis: (8) Generalized weakness: (9) UTI (urinary tract infection): Plan Epistaxis Rhino Rocket placed by the ER physician Currently no active bleed Hemoglobin stable Hemodynamic stable Non-STEMI No active chest pain At this point we are not able to anticoagulate because of epistaxis I will hold off on aspirin as well Will request echo Concern for UTI with metabolic encephalopathy Start ceftriaxone 4+ bacteriuria on UA No fever A-fib RVR Hold Eliquis Continue Coreg and diltiazem Last dose of Eliquis was at 7 AM History of PE and DVT holding Eliquis for now She will consider not a good candidate to be on anticoagulating agent she is using wheelchair and needs a lot of assistance to get out of her wheelchair at home, her is also senile Patient is full code discussed with the family have encouraged them to revisit goals of care I do believe patient is suffering from dementia after her stroke Her p.o. intake has been very poor She gets confused easily She is edentulous would use mechanical soft diet Place Cook catheter Attestations Medical Necessity Statement*: More than 2 midnights anticipated Diagnoses Pulmonary HTN I27.20 Elevated troponin R79.89 Longstanding persistent atrial fibrillation I48.11 Atrial fibrillation type: longstanding persistent On anticoagulant therapy Z79.01 Pulmonary embolism I26.99 Controlled type 2 diabetes mellitus without complication, without long-term current use of insulin E11.9 Diabetes mellitus long term care pharmacist insulin use: without intermediate use Diabetes mellitus complication status: without complication Epistaxis R04.0 Generalized weakness R53.1 UTI (urinary tract infection) N39.0
[2024-03-24 20:46] LABS: INR 1.49 (0.8-1.2)
[2024-03-24 21:00] VITALS: BP 129/99; PULSE 112; O2SAT 92
[2024-03-24 21:13] LABS: D Dimer >= 20.00 ug/mLFEU (0-0.59)
[2024-03-24 21:23] LABS: Add Urine Microscopic? YES; Bacteria Urine 4+ /hpf; Bilirubin Urine Neg (Negative); Blood Urine Trace (Negative); Glucose Urine UA Norm (Normal); Ketones Urine 1+ (Negative); Leukocyte Esterase Urine Trace (Negative); Mucus Urine 1+ /hpf; Nitrate Urine Positive (Negative); Protein Urine Trace (Negative); RBC Urine 0-4 /hpf (0-2); Specific Gravity, Urine 1.025 (1.005-1.030); Transitional Epi Cells Urine 0-4 /hpf; Urine Appearance Cloudy (CLEAR); Urine Color Yellow (Yellow); Urobilinogen Urine 1 mg/dL (Negative); pH Urine 5 (5-7)
[2024-03-24 21:24] LABS: Add Urine Culture? Yes; Hyaline Casts Urine 0-4 /lpf
--- NOTE | 2024-03-24 21:36 | ECG_ITS ---
Test Date: 2024-03-24 Pat Name: Geetha Hess Department: Room: 279 Gender: Female Behavioral Specialist: : 1950 Requested By: Jason Simmons Order Number: [id number] Tarun MD: Tatyana Rojas M.D. Measurements Intervals [place] Rate: 111 P: 0 [place]: 0 QRS: 266 QRSD: 141 T: 96 QT: 410 QTc: 560 Interpretive Statements ATRIAL FLUTTER/TACHYCARDIA WITH RAPID VENTRICULAR RESPONSE RIGHT AXIS DEVIATION [QRS AXIS > 100] RIGHT BUNDLE BRANCH BLOCK [120+ ms QRS DURATION, UPRIGHT V1, 40+ ms S IN I/aVL/V4/V5/V6] POSSIBLE ANTEROSEPTAL MYOCARDIAL INFARCTION , OF INDETERMINATE AGE [30 ms Q WAVE IN V1-V4] ST DEPRESSION, CONSIDER SUBENDOCARDIAL INJURY [0.1+ mV ST DEPRESSION] Compared to ECG 03/24/2024 19:59:58 Right-axis deviation now present ST (T wave) deviation now present Left-axis deviation no longer present Myocardial infarct finding still present Electronically Signed On 03-25-2024 1:13:51 CDT by Tatyana Rojas M.D. [id number]
[2024-03-24 22:00] VITALS: BP 129/99; PULSE 113; RESP 22; O2SAT 92
[2024-03-24 22:08] LABS: Troponin 5 2HR Delta -29.1 ABS# (0-10)
[2024-03-24 22:09] LABS: Troponin 5 2HR 185.9 ng/L (0-10)
[2024-03-24 23:00] VITALS: PULSE 106; RESP 92; O2SAT 92
[2024-03-25] VITALS (11 sets, daily range): BP systolic 90–140; BP diastolic 67–101; PULSE 72–119; RESP 14–30; TEMP 36.3–36.9; O2SAT 87–100; BMI 34.0
[2024-03-25] MEDS: cefTRIAXone 1,000 mg SDV 1000 MG IVP (00:41)
--- NOTE | 2024-03-25 01:36 | ECG_ITS ---
[facility] Test Date: 2024-03-25 Pat Name: Geetha Hess Department: Room: 279 Gender: Female Clerk Typist: : 1950 Requested By: Jason Simmons Order Number: [id number] Tarun MD: Raffi Galaviz M.D. Measurements Intervals [place] Rate: 115 P: 0 [place]: 0 QRS: -72 QRSD: 134 T: 128 QT: 273 QTc: 378 Interpretive Statements ATRIAL FLUTTER/TACHYCARDIA WITH RAPID VENTRICULAR RESPONSE RIGHT BUNDLE BRANCH BLOCK POSSIBLE ANTERIOR MYOCARDIAL INFARCTION , OF INDETERMINATE AGE [30 ms Q WAVE IN V3/V4, OR R < 0.2 mV IN V4] INFERIOR MYOCARDIAL INFARCTION , PROBABLY OLD [40+ ms Q WAVE AND/OR ST/T ABNORMALITY IN II/aVF] ST changes non specific. Compared to ECG 03/24/2024 21:39:01 No significant change Electronically Signed On 03-25-2024 9:43:21 CDT by Raffi Galaviz M.D. [id number]
--- NOTE | 2024-03-25 02:00 | XRR_ITS ---
PROCEDURE INFORMATION: Exam: XR Chest Exam date and time: 03/25/2024 2:17 AM Age: 74 years old Clinical indication: Patient HX: New onset of dyspnea with coarse lung sounds. ; Additional info: New crackles, new difficulty breathing TECHNIQUE: Imaging protocol: Radiologic exam of the chest. Views: 1 view. COMPARISON: CR (CHEST, ) 03/24/2024 7:41 PM FINDINGS: Lungs: Interval increase in retrocardiac opacification with central air bronchograms concerning for consolidation. There has been interval airspace infiltration of the right middle/right lower lobe. Pleural spaces: Blunting of the bilateral costophrenic angles, veif-[id number]-yuvb-right suspicion for bilateral parapneumonic effusions. Heart/Mediastinum: Unremarkable. No cardiomegaly. Diaphragm: Left diaphragm eventration. Bones/joints: Unremarkable. XR/XR chest 1V portable [id number] IMPRESSION: Increasing lower lung field lung infiltrates with suspicion retrocardiac consolidation, as well as, bilateral effusions. Nonspecific, can be seen in infection, CHF, aspiration. Correlate clinically.
[2024-03-25 02:05] LABS: Troponin 5 6HR Delta -37.8 ng/L (0-12)
[2024-03-25 02:06] LABS: Troponin 5 6HR 177.2 ng/L (0-10)
[2024-03-25] MEDS: FUROsemide 10 mg/mL SDV 2mL 20 MG IVP ×2 (02:14→09:27)
[2024-03-25 02:32] LABS: Vitamin B12 219 pg/mL (232-1245)
[2024-03-25 03:00] LABS: Estmated Average Glucose 103; Hemoglobin A1C 5.2 % (4.0-6.0)
--- NOTE | 2024-03-25 04:59 | PC.NURSE ---
Pt was brought to the floor on two liters of oxygen. Pt was having mild retractions with some abdominal breathing on physical assessment. Auscultation of lungs revealed crackles in bilateral lower lobes that grew worse with time. Transfer orders called for a francois catheter placement but pt could not tolerate being flat long enough for placement. Hospitalist was informed and orders were received to consult respiratory therapy, repeat chest x-ray, and give 20mg of Lasix. Doctor was also notified of her elevated D-Dimer and that her CV echo could not be complete due to heart rate. No further orders received.
[2024-03-25] MEDS: levothyroxine 175 mcg Tablet PO (05:39)
[2024-03-25 06:46] LABS: Basophils % 0.2 %; Eosinophils % 0.2 %; Lymphocytes # 0.7 10^3/uL (0.8-4.8); Lymphocytes % 13.7 %; Mean Corpuscular HGB Conc 33.5 g/dL (30-55); Mean Corpuscular Hemoglobin 33.5 pg (27-33); Mean Platelet Volume 10.1 fL (7.4-10.4); Monocytes # 0.7 10^3/uL (0.2-0.9); Monocytes % 14.3 %; Neutrophils # 3.46 10^3/uL (1.8-7.7); Neutrophils % 70.8 %; Nucleated Red Blood Cells % 0.4 %; Platelet Count 232 10^3/cmm (157-399); Red Cell Distribution Width 15.8 % (12.1-15.1); White Blood Count 4.89 10^3/uL (3.29-11.43)
[2024-03-25 06:59] LABS: Blood Urea Nitrogen 21 mg/dL (8-23); Calcium 7.8 mg/dL (8.5-10.5); Carbon Dioxide 18 mmol/L (22-29); Chloride 101 mmol/L (98-107); Creatinine Clr Calc Pharmacy 64.1531; Glucose 101 mg/dL (65-115); Magnesium 1.5 mg/dL (1.7-2.3); Osmolality Calculated 281 mOsm/kg (285-295); Phosphorus 3.3 mg/dL (2.5-4.5); Sodium 134 mmol/L (136-145)
[2024-03-25 07:06] LABS: Anion Gap 19.7 (5-19); Potassium 4.7 mmol/L (3.5-5.1)
[2024-03-25 07:59] LABS: Glucose Point of Care 97 mg/dL (70-110)
[2024-03-25] MEDS: doxycycline 100 mg Tablet PO ×2 (08:15→17:21)
[2024-03-25] MEDS: sennosides-docusate Tablet 1 TAB PO (08:15)
[2024-03-25] MEDS: dilTIAZem ER (24HR) 120 mg Capsule PO ×2 (08:15→17:21)
[2024-03-25] MEDS: carvedilol 6.25 mg Tablet PO ×2 (08:15→17:21)
[2024-03-25] MEDS: dilTIAZem 5 mg/mL SDV 5 mL IVP (08:16)
[2024-03-25 10:31] LABS: Magnesium 1.5 mg/dL (1.7-2.3)
[2024-03-25 10:36] LABS: Troponin T (5th) Once 180 ng/L (0-10)
--- NOTE | 2024-03-25 11:09 | PC.CHAP ---
Pastoral Care Encounter/Spiritual Assessment Type of Contact [] Declined telephone order clerk visit [] Patient/Family/Request visit [] Outpatient visit [] Follow-up visit [] Physician referral [] Code/Alert [] Routine visit [] Staff referral [] Actively dying [x] Patient sleeping [] Family support [] [] Out of room [] Palliative care [] [] Receiving care in room [] Pre-surgical visit [] Trauma [] Long length of stay [] ICU visit [] Other: Relational/Emotional Strength [] Patient feels connected with others/family/visitors/staff [] Distress [] Loneliness/isolation [] Abandonment Spirituality of Patient [] Person of Rachel [] Attends Jew of their Rachel [] Believes in Prayer [] Reads Bible or Gnosticist materials [] There are Spiritual issues to be addressed Automotive Glass Mechanic Interventions [] Prayer [] Active listening [] Non-anxious presence [] Spiritual/emotional support [] Crisis/trauma care [] Spiritual counseling [] Bereavement support [] Provided bereavement packet [] Provided Bible/devotional materials [] Provided toy/stuffed animal, coloring book to patient or family member [] Provided Communion [] Anointing/[place] [] Salvation [] Completed spiritual assessment [] Other: Impact on Illness or Injury [] Angry [] Fearful [] Anxious [] Often cries [] Exhaustion [] Unable to work [] Unable to attend episcopalian [] Unable to walk/stand [] Unable to read [] Unable to drive [] Unable to eat/drink [] Unable to sleep [] Unable to be with family [] Patient intubated [] Other: Summary x2 Time spent with patient
[2024-03-25 11:24] LABS: Glucose Point of Care 102 mg/dL (70-110)
[2024-03-25 12:16] LABS: Free T4 Free Thyroxine 2.71 ng/dL (0.82-1.77); NT Pro B Type Natriuretic Pept 16815 pg/mL (0-450); T3 Free 1.9 PG/ML (2.0-4.4)
[2024-03-25] MEDS: magnesium sulfate premix 1 GM/100 ML PIGGYBACK IV (12:27)
[2024-03-25] MEDS: cyanocobalamin 1,000 mcg Tablet 1000 MCG PO (12:27)
[2024-03-25] MEDS: heparin drip 25,000 UNIT/500 ML PREMIX 25.54 UNIT IV (14:12)
--- NOTE | 2024-03-25 14:16 | P.PN_ITS ---
Subjective 2 Subjective: - Patient was seen this morning, -She is alert to person, to place, not t o time, follows commands, -Family members at bedside -She does report weakness, fatigue, inte rmittent shortness of breath for the last few weeks -No falls -Denies any chest pain -According to daughter, patient was init ially on Coumadin, due to ease on her due to fingersticks, they switched over to Eliquis ? Unfortunately she developed a nosebleed on Eliquis, requiring transfer to [facility], and cauterization of bleeding by ENT ? This is when she was hospitalized coughed so they switched her back to Coumadin ? On Coumadin she is pricked her finger such that she developed ischemia of her finger that she was doing the fingerstick, and she lost her finger so that is why they switched her back to Eliquis ? Vitals/I&O/Wt Last Vital Signs Temp 98.5 F 03/25/24 11:32 Pulse 72 03/25/24 11:32 Resp 14 03/25/24 11:32 BP 90/67 03/25/24 11:32 Pulse Ox 95 03/25/24 11:32 O2 Del Method Simple Mask 03/25/24 11:32 O2 Flow Rate 2 03/25/24 02:58 03/24/24 03/25/24 03/25/24 22:59 06:59 14:59 Intake Total 1000 / 1000 Balance 1000 / 1000 Weight last 48 hrs Weight 91.217 kg Weight 87.226 kg Physical Exam 2 Const: COMMON NORMALS: no acute distress Resp: COMMON NORMALS: normal respiratory effort, No retractions, No use of accessory muscles and clear to auscultation bilaterally AUSCULTATION: clear to auscultation bilaterally Cardio: COMMON NORMALS: regular rate, regular rhythm, S1 normal heart sound present and S2 normal heart sound present RATE: regular rate RHYTHM: r egular rhythm HEART SOUNDS: S1 normal heart sound present and S2 normal heart sound present GI: COMMON NORMALS: Normal to inspection, nondistended, normoactive bowel sounds present and non-tender Extremity: COMMON NORMALS: no pedal edema Psych: COMMON NORMALS: mental status grossly normal Urinary Catheter Management: Cook: Cath Placed During This Visit: yes Reason for Continuing Indwelling Catheter: Other Urinary Catheter Date of Insertion: 07/26/24 Urinary Catheter Time of Insertion: 03:34 Data 03/25/24 06:31 03/25/24 06:31 A&P Assessment and plan (1) Pulmonary HTN: (2) Elevated troponin: (3) Atrial fibrillation: Qualifiers: Atrial fibrillation type: longstanding persistent Qualified Code(s): I 48.11 - Longstanding persistent atrial fibrillation (4) On anticoagulant therapy: (5) Pulmonary embolism: (6) Diabetes type 2, controlled: Qualifiers: Diabetes mellitus halfway insulin use: without predatory animal exterminator use Diabetes mellitus complication status: without complication Qualified Code(s): E11.9 - Type 2 diabetes mellitus without complications (7) Epistaxis: (8) Generalized weakness: (9) UTI (urinary tract infection): Plan Epistaxis Rhino Rocket placed by the ER physician Currently no active bleed Hemoglobin stable Hemodynamic stable Will have to figure out a long-term option for anticoagulant therapy Non-STEMI No active chest pain Cardiac echo pending Will hold off on aspirin due to nosebleeds Start heparin drip Telemetry monitoring Monitor chest pain Concern for UTI with metabolic encephalopathy Start ceftriaxone 4+ bacteriuria on UA No fever A-fib RVR Hold Eliquis Continue Coreg and diltiazem Last dose of Eliquis was at 7 AM History of PE and DVT holding Eliquis for now, on heparin drip Vitamin B12 deficiency, p.o. vitamin B-12 D-dimer greater than 20 ? History of DVT PE -Venous ultrasound BNP over 16,000, complains of shortness of breath, nonpitting edema 40 mg IV Lasix, CHF exacerbation Deconditioning, speech therapy, PT OT Cook catheter Full code Heparin drip for DVT prophylaxis Attestations 2 Medical Necessity Statement*: Patient requires hospitalization for NSTEMI, CHF, UTI, Diagnoses Pulmonary HTN I27.20 Elevated troponin R79.89 Longstanding persistent atrial fibrillation I48.11 Atrial fibrillation type: longstanding persistent On anticoagulant therapy Z79.01 Pulmonary embolism I26.99 Controlled type 2 diabetes mellitus without complication, without long-term current use of insulin E11.9 Diabetes mellitus halfway insulin use: without predatory animal exterminator use Diabetes mellitus complication status: without complication Epistaxis R04.0 Generalized weakness R53.1 UTI (urinary tract infection) N39.0
[2024-03-25] MEDS: FUROsemide 10 mg/mL SDV 4mL 40 MG IVP (15:20)
--- NOTE | 2024-03-25 15:31 | ECG_ITS ---
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 Measurements Intervals [place] Rate: 117 P: 0 MS: 0 QRS: -74 QRSD: 152 T: 131 QT: 348 QTc: 487 Interpretive Statements ATRIAL FLUTTER/TACHYCARDIA WITH RAPID VENTRICULAR RESPONSE RIGHT BUNDLE BRANCH BLOCK [120+ ms QRS DURATION, UPRIGHT V1, 40+ ms S IN I/aVL/V4/V5/V6] INFERIOR MYOCARDIAL INFARCTION , PROBABLY OLD [40+ ms Q WAVE AND/OR ST/T ABNORMALITY IN II/aVF] POSSIBLE ANTEROSEPTAL MYOCARDIAL INFARCTION , OF INDETERMINATE AGE [30 ms Q WAVE IN V1-V4] ST DEPRESSION, CONSIDER SUBENDOCARDIAL INJURY [0.1+ mV ST DEPRESSION] Compared to ECG 03/25/2024 09:27:12 No significant changes Electronically Signed On 03-25-2024 19:58:41 CDT by Tatyana Rojas M.D. [id number]
[2024-03-25 16:33] LABS: Troponin(5th) Baseline 181 ng/L (0-10)
--- NOTE | 2024-03-25 16:51 | ECG_ITS ---
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 Measurements Intervals [place] Rate: 118 P: 0 [place]: 0 QRS: -74 QRSD: 153 T: 121 QT: 358 QTc: 503 Interpretive Statements ATRIAL FLUTTER/TACHYCARDIA WITH RAPID VENTRICULAR RESPONSE RIGHT BUNDLE BRANCH BLOCK [120+ ms QRS DURATION, UPRIGHT V1, 40+ ms S IN I/aVL/V4/V5/V6] INFERIOR MYOCARDIAL INFARCTION , PROBABLY OLD [40+ ms Q WAVE AND/OR ST/T ABNORMALITY IN II/aVF] ANTEROSEPTAL MYOCARDIAL INFARCTION , OF INDETERMINATE AGE [40+ ms Q WAVE IN V1-V4] ST DEPRESSION, CONSIDER SUBENDOCARDIAL INJURY [0.1+ mV ST DEPRESSION] Compared to ECG 03/25/2024 15:31:08 No significant changes Electronically Signed On 03-25-2024 20:00:38 CDT by Tatyana Rojas M.D. [id number]
[2024-03-25 17:06] LABS: Glucose Point of Care 118 mg/dL (70-110)
[2024-03-25 18:19] LABS: Troponin 5 2HR 240.8 ng/L (0-10); Troponin 5 2HR Delta 59.8 ABS# (0-10)
[2024-03-25] MEDS: aspirin 81 mg EC Tablet PO (18:28)
[2024-03-25 18:34] LABS: Glucose Point of Care 129 mg/dL (70-110)
[2024-03-25 18:52] LABS: ABG PCO2 31.7 mmHg (35-45); ABG PH Result 7.44 (7.35-7.45); Alveolar-Arterial Oxygen Gradi 5.4 mmHg (5-10); Arterial Blood Gas Hematocrit 45.3 % (37-47); Base Excess ABG -1.7 mmol/L (-2.0-2.0); Blood Gas Operator Identificat glc; Blood Gas Sample Site Brachial, left; Blood Gas Sample Type Arterial; Carboxyhemoglobin 0.8 %THgb (0.4-20.1); HCO3 ABG 21.5 mmol/L (22-26); HGB O2 Sat 92.1 % (95-100); Ionized Calcium Level - ABG 1.1 mmol/L (1.1-1.4); Methemoglobin 0.1 % (0.4-1.5); Oxygen Device OXY MASK; PO2 ABG 68.5 mmHg (80.0-100.0); Potassium Level - ABG 4.4 mmol/L (3.5-5.0); Total Hemoglobin 14.8 g/dL (12-16)
[2024-03-25 20:22] LABS: Glucose Point of Care 131 mg/dL (70-110)
[2024-03-25 20:37] LABS: Partial Thromboplastin Time 97.3 SECONDS (23.9-36.7)
[2024-03-25] MEDS: ondansetron 2 mg/ML SDV 2 mL 4 MG IVP (20:38)
[2024-03-25] MEDS: doxepin 50 mg Capsule PO (21:01)
[2024-03-25] MEDS: atorvastatin 40 mg Tablet PO (21:01)
--- NOTE | 2024-03-25 21:09 | ECG_ITS ---
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 Measurements Intervals [place] Rate: 109 P: 0 IN: 0 QRS: 254 QRSD: 156 T: 116 QT: 369 QTc: 498 Interpretive Statements ATRIAL FLUTTER/TACHYCARDIA WITH RAPID VENTRICULAR RESPONSE RIGHT AXIS DEVIATION [QRS AXIS > 100] RIGHT BUNDLE BRANCH BLOCK [120+ ms QRS DURATION, UPRIGHT V1, 40+ ms S IN I/aVL/V4/V5/V6] ANTEROLATERAL MYOCARDIAL INFARCTION , OF INDETERMINATE AGE [40+ ms Q WAVE IN I/aVL/V3-V6] ST DEPRESSION, CONSIDER SUBENDOCARDIAL INJURY [0.1+ mV ST DEPRESSION] Compared to ECG 03/25/2024 16:51:11 No significant change Electronically Signed On 03-26-2024 17:05:35 CDT by Raffi Galaviz M.D. [email or web address] Networks[email or web address]/store/[id number]
--- NOTE | 2024-03-25 21:57 | W.PM.EVENTAC ---
Event Note Event Note: Patient is nonresponsive, she is persistently looking towards right side of the room, not verbally redirectable Left pupil is dilated as compared to right, family has declined further investigation/ABG, CT head, they want to pursue with comfort care they want to discontinue heparin Nurse was present in the room Start comfort care At the bedside and daughter present
--- NOTE | 2024-03-25 21:59 | PM.CCNAC ---
Critical Care Event Note I was asked to evaluate the patient patient is nonverbal, consistently staring at the ceiling, I wanted to do more investigation such as ABG, CT head and fingerstick blood has been stating that did not want to pursue any further investigation and would like to start comfort care while she is in the hospital The high probability of a clinically significant, sudden or life threatening deterioration of the patient's [] system(s) required my full and direct attention, intervention and personal management. The critical care time is as shown. This time is in addition to time spent performing any reported procedures but includes the following: [x] Data and vital sign review and interpretation [x] Patient assessment, examination and intervention [x] Documentation [x] Medication orders and management Critical Care Time Code activated: No Critical Care Time (min): 20 Additional information about critical care time: 20 Coding Level of Care Code Acute Code for Chg Kevon
--- NOTE | 2024-03-25 22:23 | PC.NURSE ---
Dr Richardson notified of patient declining condition, pt pale, diaphoretic, labored breathing, pt full code at the time, Dr Richardson ordered abg and blood glucose, family stated they did not want chest compressions or intubation, want patient to be as comfortable as possible, Dr Richardson ordered comfort care measure, changed code status to DNR/DNI, no pulse or resperations noted on monitor, no heartbeat could be auscultated by this nurse or ARJUN Hemphill, time of 2214, Dr Richardson notifed, house furnishings supervisor notified
--- NOTE | 2024-03-25 22:35 | W.PM.EVENTAC ---
Event Note Event Note: Patient 2214 Please send certificate and that summary notes to Dr. Martinez
--- NOTE | 2024-03-26 01:05 | PC.NURSE ---
post mortem care performed, ring and anklet sent home with family, pt will be taken to [facility] [place]
--- NOTE | 2024-03-26 01:24 | PC.NURSE ---
Mattie time 0118
--- NOTE | 2024-03-26 09:08 | P.DES_ITS ---
Discharge Providers DDS Date of Admission: 03/24/24 20:42 Date Summary Completed: 05/08/24 Attending Provider at Admission: Pollo Richardson MD Attending Provider at Discharge: Ladarius Mills MD Primary Care Provider: FRANKIE Peterson Diagnoses Hospital Diagnoses (1) Pulmonary HTN: (2) Elevated troponin: (3) Atrial fibrillation: Qualifiers: Atrial fibrillation type: longstanding persistent Qualified Code(s): I48.11 - Longstanding persistent atrial fibrillation (4) On anticoagulant therapy: (5) Pulmonary embolism: (6) Diabetes type 2, controlled: Qualifiers: Diabetes mellitus complication status: without complication Diabetes mellitus skilled nursing insulin use: without manager intermediate use Qualified Code(s): E11.9 - Type 2 diabetes mellitus without complications (7) Epistaxis: (8) Generalized weakness: (9) UTI (urinary tract infection): Reason for Visit Reason for Visit WEAKNESS Summary Summary Summary: Geetha Hess is a 74-year-old female with a past medical history of epistaxis requiring transfer to [facility], was on Eliquis therapy, with history of atrial fibrillation, back on Eliquis therapy, type 2 diabetes mellitus, hypertension, hypothyroidism obesity, dyslipidemia, history of CVA, history of pulmonary embolism, DVT who presents to [facility] nosebleed, weakness, fatigue, intermittent shortness of breath, Patient was admitted to [facility] for epistaxis, Rhino Rocket placed by ER physician, NSTEMI, concerns for UTI with metabolic encephalopathy, elevated BNP, concerning for CHF exacerbation Epistaxis Rhino Rocket placed by the ER physician Currently no active bleed Hemoglobin stable Hemodynamic stable Will have to figure out a long-term option for anticoagulant therapy Non-STEMI No active chest pain Cardiac echo pending Will hold off on aspirin due to nosebleeds Start heparin drip Telemetry monitoring Monitor chest pain Concern for UTI with metabolic encephalopathy Start ceftriaxone 4+ bacteriuria on UA No fever A-fib RVR Hold Eliquis Continue Coreg and diltiazem Last dose of Eliquis was at 7 AM History of PE and DVT holding Eliquis for now, on heparin drip -Discussed risks and benefits of heparin drip with the patient's family, she does have a significant nosebleed requiring transfer to [facility] in the recent past, now has recurrent nosebleeds but is back on Eliquis ? She has a history of DVT, PE, atrial fibrillation which carries significant morbidity mortality without anticoagulant therapy ? However anticoagulant therapy carries significant risk of nosebleeding, morbidity and mortality associated ? After discussing with him the risks and benefits of all options, shared decision making, they voiced understanding, all questions answered, agreed to proceed with heparin drip, as we can closely monitor her on the heparin drip Vitamin B12 deficiency, p.o. vitamin B-12 D-dimer greater than 20 ? History of DVT PE -Venous ultrasound BNP over 16,000, complains of shortness of breath, nonpitting edema 40 mg IV Lasix, CHF exacerbation Deconditioning, speech therapy, PT OT Cook catheter Full code Heparin drip for DVT prophylaxis Patient was seen t the morning of 03/25/2024 -She is alert to person, to place, not to time, follows commands, -Family members at bedside -She does report weakness, fatigue, intermittent shortness of breath for the last few weeks -No falls -Denies any chest pain -According to daughter, patient was initially on Coumadin, due to ease on her due to fingersticks, they switched over to Eliquis ? Unfortunately she developed a nosebleed on Eliquis, requiring transfer to [facility], and cauterization of bleeding by ENT ? This is when she was hospitalized coughed so they switched her back to Coumadin ? On Coumadin she is pricked her finger such that she developed ischemia of her finger that she was doing the fingerstick, and she lost her finger so that is why they switched her back to Eliquis ?Troponin up to 240, delta of 60, EKG shows ST depressions in anterior leads, she is chest pain free, will moved down to CSU, continue heparin drip, added aspirin, she is received Lasix monitor urine output, consulted cardiology -Concerns for NSTEMI, with underlying cardiac etiology, placed on heparin drip, risks and benefits discussed with family members and patient given recurrent nosebleed, morbidity and mortality discussed certainly this is a difficult situation, however given her upward trending troponins or EKG changes, concerns for underlying cardiac etiology. After discussing risk and benefits, they voiced understanding, all questions answered, agreed to proceed with heparin drip -Acute respiratory failure, secondary to CHF, requiring IV diuresis also playing a role -Discussed with family complicated medical history of DVT, PE, A-fib on anticoagulant therapy, underlying deconditioned state, poor strength, prior hi story of CVA, decreased p.o. intake episodes of confusion, concern for underlying dementia by family members -The evening of 03/25/2024 patient became nonresponsive, persistently looking towards the right side of the room, not verbally redirectable, left pupil was dilated, concerns for possible cerebral hemorrhage?, overnight physician discussed further urgent interventions and testing, discussed morbidity and mortality of patient's current condition, they voiced understanding, all questions answered, after discussing with family members, family members wanted to pursue comfort care, -After discussing risk and benefits of comfort care, they voiced understanding, all questions answered, proceeded with comfort care Patient was started on comfort care -Time of 221403/25/2024 Additional Data Confirmation of as documented by pronouncing clinician: no pulse, no respirations and no heart sounds Family: at bedside Additional persons at bedside: nursing staff Attending/PCP notified?: I am attending Was code activated?: No Autopsy requested?: No Advance directives?: No Discharge Plan Discharge Patient Disposition: At Medical Facility Condition: Stable Prescriptions: No Action aspirin 81 mg tablet,delayed release (DR/EC) 81 mg PO QAM Eliquis 5 mg tablet 5 mg PO BID Qty: 180 3RF Rx Instructions: 340b hydralazine 25 mg tablet 25 mg PO BID Qty: 180 3RF doxepin 50 mg capsule See Rx Instructions .ROUTE .COMPLEX Qty: 90 0RF Dose Instruction: Take 1 capsule by mouth once daily Rx Instructions: Take 1 capsule by mouth every evening. carvedilol 6.25 mg tablet See Rx Instructions .ROUTE .COMPLEX Qty: 180 0RF Dose Instruction: TAKE 1 TABLET BY MOUTH TWICE DAILY MUST BE ADMINISTERED WITH MEAL/FOOD Rx Instructions: TAKE 1 TABLET BY MOUTH TWICE DAILY MUST BE ADMINISTERED WITH MEAL/FOOD pantoprazole 40 mg tablet,delayed release (DR/EC) See Rx Instructions .ROUTE .COMPLEX Qty: 90 0RF Dose Instruction: Take 1 tablet by mouth once daily Rx Instructions: Take 1 tablet by mouth once daily atorvastatin 40 mg tablet See Rx Instructions .ROUTE .COMPLEX Qty: 90 0RF Dose Instruction: Take 1 tablet by mouth once daily Rx Instructions: Take 1 tablet by mouth once daily levothyroxine 175 mcg tablet See Rx Instructions .ROUTE .COMPLEX Qty: 90 0RF Dose Instruction: Take 1 tablet by mouth once daily Rx Instructions: Take 1 tablet by mouth in the morning. metformin 500 mg tablet See Rx Instructions .ROUTE .COMPLEX Qty: 60 0RF Dose Instruction: Take 1 tablet by mouth twice daily Rx Instructions: Take 1 tablet by mouth twice daily diltiazem HCl 120 mg capsule,extended release 24 hr See Rx Instructions .ROUTE .COMPLEX Qty: 180 0RF Dose Instruction: Take 1 capsule by mouth twice daily Rx Instructions: Take 1 capsule by mouth twice daily spironolactone 25 mg tablet See Rx Instructions .ROUTE .COMPLEX Qty: 90 0RF Dose Instruction: TAKE 1 TABLET BY MOUTH IN THE MORNING Rx Instructions: TAKE 1 TABLET BY MOUTH IN THE MORNING escitalopram oxalate 10 mg tablet See Rx Instructions .ROUTE .COMPLEX Qty: 90 0RF Dose Instruction: Take 1 tablet by mouth once daily Rx Instructions: Take 1 tablet by mouth once daily prednisolone acetate 1 % drops,suspension 1 drp ophthalmic (eye) QID tobramycin 0.3 % drops 1 drp ophthalmic (eye) BID acyclovir 800 mg tablet 800 mg PO QAM Referrals: Patricia Coats FNP [Primary Care Provider] - Discharge Diet: Cardiac Discharge Activity: Resume usual activity Patient Instructions: Opioid Safety DS Attestations Time Spent in /Discharge Care*: greater than 30 min Quality - AMI: AMI present?: No Quality - Stroke: CVA present?: No Quality - VTE: VTE present?: No Coding Level of Care Code 11957 Total time (in minutes) for Discharge: 30 Diagnoses Pulmonary HTN I27.20 Elevated troponin R79.89 Longstanding persistent atrial fibrillation I48.11 Atrial fibrillation type: longstanding persistent On anticoagulant therapy Z79.01 Pulmonary embolism I26.99 Controlled type 2 diabetes mellitus without complication, without long-term current use of insulin E11.9 Diabetes mellitus complication status: without complication Diabetes mellitus manager intermediate insulin use: without manager intermediate use Epistaxis R04.0 Generalized weakness R53.1 UTI (urinary tract infection) N39.0
== END 2024-03-26 01:30 | disposition expired ==
LOC: ER 21:06 → MEDSURG 21:19 → CSU 03-25 19:49
PROVIDERS: Admitting Provider Internal Medicine; Emergency Provider Emergency Medicine; PCP Nurse Practitioner Family; Visit Provider Family Medicine
DX: I21.4 Non-ST elevation (NSTEMI) myocardial infarction (principal); G93.41 Metabolic encephalopathy; J96.00 Acute respiratory failure, unspecified whether with hypoxia or hypercapnia; I48.11 Longstanding persistent atrial fibrillation; N39.0 Urinary tract infection, site not specified; R04.0 Epistaxis; E11.9 Type 2 diabetes mellitus without complications; I11.0 Hypertensive heart disease with heart failure; I50.9 Heart failure, unspecified; E03.9 Hypothyroidism, unspecified; E66.9 Obesity, unspecified; E78.5 Hyperlipidemia, unspecified; E53.8 Deficiency of other specified B group vitamins; I27.20 Pulmonary hypertension, unspecified; R40.4 Transient alteration of awareness; Z68.35 Body mass index [BMI] 35.0-35.9, adult; Z79.84 Long term (current) use of oral hypoglycemic drugs; Z79.01 Long term (current) use of anticoagulants; Z79.82 Long term (current) use of aspirin; Z86.73 Personal history of transient ischemic attack (TIA), and cerebral infarction without residual deficits; Z99.3 Dependence on wheelchair; Z86.711 Personal history of pulmonary embolism; Z86.718 Personal history of other venous thrombosis and embolism; Z89.029 Acquired absence of unspecified finger(s)
CPT/HCPCS: 30901; 36415; 36416; 51702; 70450; 71045; 80048; 80051; 80053; 81001; 82330; 82607; 82805; 82962; 83036; 83690; 83735; 83880; 84100; 84439; 84443; 84481; 84484; 85025; 85378; 85610; 85730; 87086; 92523; 92610; 93005; 94664; 99285; J0696; J1644; J1940; J2405; J3475; J3490; J7030